=== PATIENT | female | born 1965 | race Caucasian/White ===

== ENCOUNTER 2016-08-04 22:36 | Outpatient (CLI) | payer MEDICAID | END 2016-08-04 22:37 | disposition home or self-care (01) | DX: G47.33 Obstructive sleep apnea (adult) (pediatric) (principal); G47.61 Periodic limb movement disorder; Z68.41 Body mass index [BMI] 40.0-44.9, adult ==

== ENCOUNTER 2016-08-30 10:10 | Outpatient (CLI) | payer MEDICAID | END 2016-08-30 10:11 | disposition home or self-care (01) | DX: G47.33 Obstructive sleep apnea (adult) (pediatric) (principal) ==

== ENCOUNTER 2016-11-15 14:54 | Outpatient (CLI) | payer MEDICAID | END 2016-11-15 14:55 | disposition home or self-care (01) | LOC: SC 14:54 | PROVIDERS: ATTEND Nurse Practitioner Family | DX: G47.33 Obstructive sleep apnea (adult) (pediatric) (principal) | CPT/HCPCS: 99212; 99214 ==

== ENCOUNTER 2016-12-13 09:51 | Outpatient (CLI) | payer MEDICAID ==
[2016-12-13 18:28] LABS: BASOPHILS % (AUTO) 0.4 %; EOSINOPHILS # (AUTO) 0.2 10^3/uL (0.0-0.7); EOSINOPHILS % (AUTO) 4.7 %; HCT - HEMATOCRIT 40.5 % (37.0-47.0); HGB - HEMOGLOBIN 13.8 g/dL (12.0-16.0); LYMPHOCYTES # (AUTO) 1.5 10^3/uL (1.5-3.5); LYMPHOCYTES % (AUTO) 38.7 %; MEAN CORPUSCULAR HEMOGLOBIN 28.8 pg (27.0-31.0); MEAN CORPUSCULAR HGB CONC 34.1 g/dL (32.0-36.0); MEAN CORPUSCULAR VOLUME 84.4 fL (81.0-99.0); MEAN PLATELET VOLUME 8.5 fL (7.9-10.8); MONOCYTES # (AUTO) 0.3 10^3/uL (0.0-1.0); MONOCYTES % (AUTO) 7.9 %; NEUTROPHILS # (AUTO) 1.9 10^3/uL (1.5-6.6); NEUTROPHILS % (AUTO) 48.3 %; NUCLEATED RED BLOOD CELLS AUTO 0.2 /100WBC; RED BLOOD COUNT 4.79 10^6/uL (4.20-5.40); RED CELL DISTRIBUTION WIDTH 14.7 % (12.0-15.0)
[2016-12-13 18:30] LABS: BILIRUBIN,URINE NEGATIVE (NEGATIVE); PH,URINE 5.5 PH (5.0-7.5)
[2016-12-13 19:00] LABS: UR CULTURE IF IND NOT INDICATED; WBC,URINE 0-3 /HPF (0-5)
[2016-12-13 19:01] LABS: ALBUMIN/GLOBULIN RATIO 1.4 (1.0-2.2); BILIRUBIN,TOTAL 0.6 mg/dL (0.2-1.0); CALCIUM 10.2 mg/dL (8.5-10.3); CREATININE 0.6 mg/dL (0.4-1.0); POTASSIUM 4.3 mmol/L (3.5-5.0); TOTAL PROTEIN 7.9 g/dL (6.7-8.2)
[2016-12-13 19:17] LABS: THYROID STIMULATING HORMONE 2.41 uIU/mL (0.34-5.60)
== END 2016-12-13 09:52 | disposition home or self-care (01) ==
LOC: LAB.F 09:51
PROVIDERS: ATTEND Nurse Practitioner Family
DX: E11.9 Type 2 diabetes mellitus without complications (principal); E03.9 Hypothyroidism, unspecified
CPT/HCPCS: 36415; 80053; 81001; 81003; 82043; 82570; 84439; 84443; 85025; 87086

== ENCOUNTER 2016-12-28 11:02 | Outpatient (CLI) | payer MEDICAID ==
--- NOTE | 2016-12-29 13:21 | Mammography Report ---
DIGITAL SCREENING MAMMOGRAM: 12/28/2016 CLINICAL INDICATION: A 51-year-old nulliparous patient, for screening. COMPARISON: 07/2011, 03/2008. TECHNIQUE: Routine CC and MLO projections were obtained of the breasts. FINDINGS: Scattered fibroglandular tissue is present within the breasts. There are no dominant elvis s, suspicious microcalcifications, or secondary signs of malignancy. In comparison to the previous st udies, there are no significant changes. ASSESSMENT: NO MAMMOGRAPHIC EVIDENCE OF MALIGNANCY. NO SIGNIFICANT INTERVAL CHANGES. RECOMMENDATION: Screening mammography is recommended annually. BIRADS category 1 - negative. STANDARD QUALIFYING STATEMENTS 1. This examination was reviewed with the aid of Computed-Aided Detection (CAD). 2. A negative or benign imaging report should not delay biopsy if clinically suspicious findings are present. Consider surgical consultation if warranted. More than 5% of cancers are not identified by i maging. 3. Dense breasts may obscure an underlying neoplasm. JOB #: [id number] EXT JOB #:[id number]
== END 2016-12-28 11:03 | disposition home or self-care (01) ==
LOC: DI.S 11:02
PROVIDERS: ATTEND Nurse Practitioner Family
DX: Z12.31 Encounter for screening mammogram for malignant neoplasm of breast (principal); Z01.419 Encounter for gynecological examination (general) (routine) without abnormal findings
CPT/HCPCS: 77067

== ENCOUNTER 2016-12-29 08:58 | Outpatient (CLI) | payer MEDICAID ==
[2016-12-29 11:59] LABS: CHOL/HDL RATIO 5.1 (<4.4); CHOLESTEROL 187 mg/dL; HDL CHOLESTEROL 37 mg/dL; LDL/HDL RATIO 2.4 (<4.4); TRIGLYCERIDES 305 mg/dL; VLDL CHOLESTEROL 61 mg/dL
[2016-12-29 12:11] LABS: HEMOGLOBIN A1C 1.28 g/dL
== END 2016-12-29 08:59 | disposition home or self-care (01) ==
LOC: LAB.F 08:58
PROVIDERS: ATTEND Nurse Practitioner Family
DX: E78.1 Pure hyperglyceridemia (principal)
CPT/HCPCS: 36415; 80061; 83036

== ENCOUNTER 2017-06-08 08:25 | Outpatient (CLI) | payer MEDICAID ==
[2017-06-08 11:11] LABS: CHOL/HDL RATIO 6.1 (<4.4); CHOLESTEROL 220 mg/dL; HDL CHOLESTEROL 36 mg/dL; LDL CHOLESTEROL,CALCULATED 121 mg/dL; LDL/HDL RATIO 3.4 (<4.4); VLDL CHOLESTEROL 63 mg/dL
[2017-06-08 11:14] LABS: HB2 TOTAL 14.2 g/dL; HEMOGLOBIN A1C 1.31 g/dL; HEMOGLOBIN A1C % 10.6 % (4.6-6.2)
[2017-06-08 11:17] LABS: THYROID STIMULATING HORMONE 6.9 uIU/mL (0.34-5.60)
[2017-06-08 11:58] LABS: FREE T4 (FREE THYROXINE) 0.83 ng/dL (0.58-1.64)
== END 2017-06-08 08:26 | disposition home or self-care (01) ==
LOC: LAB.F 08:25
PROVIDERS: ATTEND Nurse Practitioner Family
DX: E78.1 Pure hyperglyceridemia (principal); E11.9 Type 2 diabetes mellitus without complications; E03.9 Hypothyroidism, unspecified
CPT/HCPCS: 36415; 80061; 83036; 83721; 84439; 84443

== ENCOUNTER 2017-07-20 10:40 | Outpatient (CLI) | payer MEDICAID | END 2017-07-20 10:41 | disposition home or self-care (01) | LOC: LAB.F 10:40 | PROVIDERS: ATTEND Nurse Practitioner Family | DX: I10 Essential (primary) hypertension (principal) | CPT/HCPCS: 36415; 84132 ==

== ENCOUNTER 2017-10-08 08:42 | Outpatient (CLI) | payer MEDICAID ==
[2017-10-08 11:59] LABS: ALBUMIN 4.1 g/dL (3.2-5.5); ALBUMIN/GLOBULIN RATIO 1.3 (1.0-2.2); BILIRUBIN,TOTAL 0.9 mg/dL (0.2-1.0); CALCIUM 9.4 mg/dL (8.5-10.3); CREATININE 0.7 mg/dL (0.4-1.0); TOTAL PROTEIN 7.2 g/dL (6.7-8.2)
== END 2017-10-08 08:43 | disposition home or self-care (01) ==
LOC: LAB.F 08:42
PROVIDERS: ATTEND Nurse Practitioner Family
DX: E78.5 Hyperlipidemia, unspecified (principal); E11.65 Type 2 diabetes mellitus with hyperglycemia
CPT/HCPCS: 36415; 80053; 83721

== ENCOUNTER 2017-11-08 09:57 | Outpatient (CLI) | payer MEDICAID ==
[2017-11-08 18:18] LABS: HB2 TOTAL 13.7 g/dL; HEMOGLOBIN A1C 0.9 g/dL; HEMOGLOBIN A1C % 8.2 % (4.6-6.2)
== END 2017-11-08 09:58 | disposition home or self-care (01) ==
LOC: LAB.F 09:57
PROVIDERS: ATTEND Family Medicine
DX: E11.649 Type 2 diabetes mellitus with hypoglycemia without coma (principal)
CPT/HCPCS: 36415; 83036

== ENCOUNTER 2018-05-31 08:26 | Outpatient (CLI) | payer MEDICAID ==
[2018-05-31 12:03] LABS: BASOPHILS % (AUTO) 0.4 %; EOSINOPHILS # (AUTO) 0.2 10^3/uL (0.0-0.7); EOSINOPHILS % (AUTO) 2.7 %; HGB - HEMOGLOBIN 12.6 g/dL (12.0-16.0); LYMPHOCYTES # (AUTO) 1.4 10^3/uL (1.5-3.5); LYMPHOCYTES % (AUTO) 19.1 %; MEAN CORPUSCULAR HEMOGLOBIN 28.5 pg (27.0-31.0); MEAN CORPUSCULAR HGB CONC 34.4 g/dL (32.0-36.0); MEAN CORPUSCULAR VOLUME 82.8 fL (81.0-99.0); MEAN PLATELET VOLUME 8.1 fL (7.9-10.8); MONOCYTES # (AUTO) 0.4 10^3/uL (0.0-1.0); MONOCYTES % (AUTO) 6.1 %; NEUTROPHILS # (AUTO) 5.3 10^3/uL (1.5-6.6); NEUTROPHILS % (AUTO) 71.7 %; PLT - PLATELET COUNT 244 10^3/uL (130-450); RED BLOOD COUNT 4.44 10^6/uL (4.20-5.40); WHITE BLOOD COUNT 7.3 x10^3/uL (4.8-10.8)
[2018-05-31 12:23] LABS: ALBUMIN/GLOBULIN RATIO 1.2 (1.0-2.2); ALKALINE PHOSPHATASE 86 IU/L (42-121); ALT ALANINE AMINOTRANSFERASE 48 IU/L (10-60); AST ASPARTATE AMINOTRANSFERASE 29 IU/L (10-42); BILIRUBIN,TOTAL 0.6 mg/dL (0.2-1.0); BUN - BLOOD UREA NITROGEN 20 mg/dL (6-20); CALCIUM 9.5 mg/dL (8.5-10.3); CARBON DIOXIDE - CO2 25 mmol/L (21-32); CHLORIDE 102 mmol/L (101-111); CHOL/HDL RATIO 3.6 (<4.4); CHOLESTEROL 113 mg/dL; CREATININE 0.7 mg/dL (0.4-1.0); GFR - MDRD 87 (>89); GLUCOSE 196 mg/dL (70-100); HDL CHOLESTEROL 31 mg/dL; LDL CHOLESTEROL,CALCULATED 35 mg/dL; LDL/HDL RATIO 1.1 (<4.4); SODIUM 135 mmol/L (135-145); TOTAL PROTEIN 7.4 g/dL (6.7-8.2); VLDL CHOLESTEROL 47 mg/dL
== END 2018-05-31 08:27 | disposition home or self-care (01) ==
LOC: LAB.F 08:26
PROVIDERS: ATTEND Nurse Practitioner Family
DX: I10 Essential (primary) hypertension (principal); E78.5 Hyperlipidemia, unspecified; E11.8 Type 2 diabetes mellitus with unspecified complications
CPT/HCPCS: 36415; 80053; 80061; 82043; 83721; 84443; 85025

== ENCOUNTER 2019-01-28 14:12 | Outpatient (CLI) | payer MEDICAID ==
[2019-01-28 18:40] LABS: HEMOGLOBIN A1C 0.73 g/dL; HEMOGLOBIN A1C % 7.3 % (4.6-6.2)
== END 2019-01-28 14:13 | disposition home or self-care (01) ==
LOC: LAB.S 14:12
PROVIDERS: ATTEND Physician Assistant Medical
DX: E11.65 Type 2 diabetes mellitus with hyperglycemia (principal)
CPT/HCPCS: 36415; 83036

== ENCOUNTER 2019-06-17 16:05 | Outpatient (CLI) | payer MEDICAID ==
[2019-06-17 17:32] VITALS: BP 136/70
--- NOTE | 2019-06-17 17:32 | SLEEP CARE CONSULTATION ---
Information from patient questionnaire entered by Leilani Pichardo. I have reviewed and concur with the information entered by Leilani Pichardo. This document represents the service I personally performed and the decisions made by me, Daysi Delcid, RN, MSN, HUMAN RESOURCES GENERALIST. History of Present Illness Previous diagnosis: Severe, Obstructive Sleep Apnea-Hypopnea Syndrome AHI: 30.5 Reason for follow up: annual (Last seen 2017) Equipment type: CPAP Equipment obtained from: [facility] (having difficulty getting supplies despite repeated attempts) Mask style: Nasal Mask brand: Resmed Backup mask available: Yes (old mask ) Last cushion change: a few months ago CPAP Compliance Data - Data Reviewed with Patient Average duration of nightly device use: 10.25 Compliance rate %: 100 (last 30) Current pressure setting (cmH2O): 10-15 Humidity settin Heated hose settin Average residual AHI: 0.5 Average large leak: 1 min 32 sec Subjective Patient concerns: reports: other (dry skin where mask sits next to nose). denies: aerophagia, mask discomfort, air blowing in eyes, mask leak noise, condensation in mask/hose, nasal congestion, dry mouth, nose, throat (does not use humidifier ), epistaxis Observed to snore while using device: No Current pressure setting perceived as: comfortable On therapy, patient: reports: sleeping better, awakening more refreshed, being more awake and alert during the day, more rested overall. denies: drowsiness while driving Initial [place] Sleepiness Scale score: 13 Current [place] Sleepiness Scale score: 7 Allergies and Home Medications Known drug allergies: Yes (see above ) Home medication list reviewed: Yes Allergy and home medication list: losartin 50mg ? daily metoprolol 100mg daily metformin 500mg bid doxazosin 4mg daily levothyroxine 120meq daily Lantus solostar 50 units daily sq Flexeril 10mg po tid prn vitamin D 3 5000 units daily multivitamin daily Physical Exam Blood Pressure: 136/70 Cuff size: long Heart Rate: 84 O2 Saturation: 97 Height: 5 ft 1 in Weight: 235 lb 3.2 oz Body Mass Index: 44.4 BMI Classification: Obesity Class 3 Impression and Plan 1. Obstructive Sleep Apnea-Hypopnea Syndrome, severe , with good treatment compliance and good apnea control. On CPAP therapy, the patient has better sleep quality and is more rested overall. For dry skin, she can try Vaseline after mask use. Also, pad a Cheek cloth skin barrier samples shown that can be ordered to reduce mask skin irritation. A pamphlet given about the product was given. For patient supply concerns. Patient was notified that another DME can be used. I will have my membership coordinator inform of DME options. A [facility] prescription will then be made. Patient advised to contact this office if further supply problems. There were some data breaks in the past 6 months of use that patient does not understand as she is unable to sleep without CPAP and has a portable when power outages. Thus she is advised to check out the Serstechapper micheal to track her use and if breaks noted when using, then we can have device for malfunction. Patient has gained weight. Currently patients BMI is 39.9 obesity class. Obesity increases the risk of apnea, CPAP pressure requirements and overall health risks especially cardiovascular and diabetes. Thus patient is advised to lose weight. A diet consultation can be helpful in achieving optimal weight loss goals. Patient encouraged to discuss their weight loss goals with their PCP and consider a referral to a vat house supervisor. The patient's CPAP pressure range should accommodate some weight loss. The range will adjust higher when she uses her muscle relaxant. Symptoms to report for additional pressure adjustment discussed. Patient's apnea severity and rationale for treatment to reduce apnea, improve sleep quality and reduce cardiovascular and cerebrovascular events was reviewed. I also reviewed the benefit of consistent device use of CPAP for hypertension, diabetes * Continue CPAP pressure at 10-15 cmH2O * Transfer to new DME * Try Sleep swimming pool installer and servicer micheal * Consider cloth barrier * Notify me if snoring with mask or feeling that the pressure is too much or too little * Attempt to lose weight * follow up with PCP for diet consultation * Call this office if any problems using CPAP * Return for follow up in 1 year, or sooner if concerns arise . Time Spent with Patient (minutes): 30 I spent 100% of this visit face to face with the patient with greater than 50% of this was spent time counseling the patient and coordination of care.
== END 2019-06-17 16:06 | disposition home or self-care (01) ==
LOC: SC 16:05
PROVIDERS: ATTEND Nurse Practitioner Family
DX: G47.33 Obstructive sleep apnea (adult) (pediatric) (principal); E66.9 Obesity, unspecified; Z68.39 Body mass index [BMI] 39.0-39.9, adult
CPT/HCPCS: 99212; 99214

== ENCOUNTER 2019-07-18 08:56 | Outpatient (CLI) | payer MEDICAID ==
[2019-07-18 17:17] LABS: BASOPHILS % (AUTO) 0.3 %; EOSINOPHILS # (AUTO) 0.3 10^3/uL (0.0-0.7); EOSINOPHILS % (AUTO) 4.3 %; HGB - HEMOGLOBIN 12.6 g/dL (12.0-16.0); LYMPHOCYTES # (AUTO) 2.2 10^3/uL (1.5-3.5); LYMPHOCYTES % (AUTO) 36.7 %; MEAN CORPUSCULAR HEMOGLOBIN 27.4 pg (27.0-31.0); MEAN CORPUSCULAR VOLUME 85.7 fL (81.0-99.0); MEAN PLATELET VOLUME 9.9 fL (7.9-10.8); MONOCYTES # (AUTO) 0.4 10^3/uL (0.0-1.0); MONOCYTES % (AUTO) 6.5 %; NEUTROPHILS % (AUTO) 51.5 %; PLT - PLATELET COUNT 259 10^3/uL (130-450); RED CELL DISTRIBUTION WIDTH 14.6 % (12.0-15.0); WHITE BLOOD COUNT 5.9 x10^3/uL (4.8-10.8)
[2019-07-18 17:34] LABS: HB2 TOTAL 13.3 g/dL; HEMOGLOBIN A1C 0.83 g/dL; HEMOGLOBIN A1C % 7.9 % (4.6-6.2)
[2019-07-18 17:41] LABS: ALBUMIN 4.2 g/dL (3.2-5.5); ALBUMIN/GLOBULIN RATIO 1.4 (1.0-2.2); ALKALINE PHOSPHATASE 58 IU/L (42-121); ALT ALANINE AMINOTRANSFERASE 45 IU/L (10-60); AST ASPARTATE AMINOTRANSFERASE 27 IU/L (10-42); BILIRUBIN,TOTAL 0.7 mg/dL (0.2-1.0); BUN - BLOOD UREA NITROGEN 20 mg/dL (6-20); CALCIUM 9.1 mg/dL (8.5-10.3); CARBON DIOXIDE - CO2 27 mmol/L (21-32); CHLORIDE 99 mmol/L (101-111); CHOL/HDL RATIO 3.2 (<4.4); CHOLESTEROL 113 mg/dL; CREATININE 0.7 mg/dL (0.4-1.0); GFR - MDRD 87 (>89); GLUCOSE 185 mg/dL (70-100); HDL CHOLESTEROL 35 mg/dL; LDL CHOLESTEROL,CALCULATED 43 mg/dL; LDL/HDL RATIO 1.2 (<4.4); SODIUM 134 mmol/L (135-145); TOTAL PROTEIN 7.3 g/dL (6.7-8.2); VLDL CHOLESTEROL 35 mg/dL
[2019-07-18 17:44] LABS: CREATININE,URINE 108.6 mg/dL; MICROALBUM/CREATININE RATIO,UR 6.4 ug/mg (<30.0); MICROALBUMIN,URINE 0.7 mg/dL (0-300.0)
== END 2019-07-18 08:57 | disposition home or self-care (01) ==
LOC: LAB.S 08:56
PROVIDERS: ATTEND Physician Assistant Medical
DX: I10 Essential (primary) hypertension (principal); E78.5 Hyperlipidemia, unspecified; E11.65 Type 2 diabetes mellitus with hyperglycemia; E03.9 Hypothyroidism, unspecified
CPT/HCPCS: 36415; 80053; 80061; 82043; 82570; 83036; 83721; 84443; 85025

== ENCOUNTER 2020-03-15 08:31 | Outpatient (CLI) | payer MEDICAID ==
[2020-03-15 16:01] LABS: CALCIUM 9.6 mg/dL (8.5-10.3); CREATININE 0.8 mg/dL (0.4-1.0)
[2020-03-15 16:44] LABS: CREATININE,URINE 166.3 mg/dL; MICROALBUM/CREATININE RATIO,UR 7.2 ug/mg (<30.0); MICROALBUMIN,URINE 1.2 mg/dL (0-300.0)
[2020-03-15 21:03] LABS: HEMOGLOBIN A1c% 7.9 % (4.27-6.07)
== END 2020-03-15 08:32 | disposition home or self-care (01) ==
LOC: LAB.S 08:31
PROVIDERS: ATTEND Registered Nurse
DX: E11.65 Type 2 diabetes mellitus with hyperglycemia (principal)
CPT/HCPCS: 36415; 80048; 82043; 82570; 83036

== ENCOUNTER 2020-06-21 15:51 | Outpatient (CLI) | payer MEDICAID | END 2020-06-21 15:52 | disposition critical access hospital (66) | LOC: EMS 15:51 | PROVIDERS: ATTEND Emergency Medicine | DX: R41.82 Altered mental status, unspecified (principal) | CPT/HCPCS: A0425; A0427; A0999 ==

== ENCOUNTER 2020-06-21 16:23 | Observation (INO) | payer MEDICAID ==
--- NOTE | 2020-06-21 16:54 | ED Physician Documentation ---
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 states that this started about 2 days ago, noticed her sleeping more than usual. 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 No trauma. No fevers. Nothing makes it better or worse. No history of stroke. She is diabetic. Review of Systems Ten Systems: 10 systems reviewed and negative Constitutional: denies: Fever, Chills Nose: denies: Rhinorrhea / runny nose, Congestion Cardiac: denies: Chest pain / pressure, Palpitations Respiratory: denies: Cough GI: denies: Vomiting PD PAST MEDICAL HISTORY - Past Medical History Cardiovascular: Hypertension, High cholesterol Endocrine/Autoimmune: Type 2 diabetes, HyPOthyroidism - Present Medications Home Medications: Ambulatory Orders Medication Instructions Recorded Confirmed Doxazosin [Cardura] 6 mg PO DAILY 06/12/14 06/22/20 Metoprolol Succinate 100 mg PO DAILY 06/12/14 06/22/20 Insulin Glargine [Lantus Solostar] 50 unit SUBQ DAILY 10/25/17 06/22/20 Albuterol Sulfate [Proair Hfa 2 puffs INH PRN PRN 06/22/20 06/22/20 Inhaler] Atorvastatin Calcium [Lipitor] 80 mg PO QPM 06/22/20 06/22/20 Cyclobenzaprine HCl 10 mg PO PRN PRN 06/22/20 06/22/20 Levothyroxine [Synthroid] 125 mcg PO DAILY 06/22/20 06/22/20 Losartan Potassium 25 mg PO DAILY 06/22/20 06/22/20 Metformin HCl [Glucophage] 1,000 mg PO BID 06/22/20 06/22/20 - Allergies Allergies/Adverse Reactions: Allergies Allergy/AdvReac Type Severity Reaction Status Date / Time clindamycin Allergy Respiratory Verified 06/21/20 16:45 Penicillins Allergy Unknown Verified 06/21/20 16:45 Sulfa (Sulfonamide Allergy Unknown Verified 06/21/20 16:45 Antibiotics) - Social History Smoking Status: Never smoker PD ED PE NORMAL - Vitals Vital signs reviewed: Yes - General General: No acute distress, Well developed/nourished, Other (Alert, oriented to person, place, time, slow to respond at times. Has difficulty with longer sentences. Able to answer short sentences easily) - HEENT HEENT: Atraumatic, PERRL, Ears normal, Moist mucous membranes, Pharynx benign - Neck Neck: Supple, no meningeal sign - Cardiac Cardiac: RRR, Strong equal pulses - Respiratory Respiratory: No respiratory distress, Clear bilaterally - Abdomen Abdomen: Soft, Non tender, Non distended - Back Back: No CVA TTP - Derm Derm: Warm and dry - Extremities Extremities: No edema - Neuro Neuro: smoking pipe repairer 2-12 intact, No motor deficit, No sensory deficit Eye Opening: Spontaneous Motor: Obeys Commands Verbal: Confused GCS Score: 14 Results - Vitals Vitals: Vital Signs - 24 hr 06/21/20 06/21/20 06/21/20 16:20 16:30 16:56 Temperature 37.0 C Heart Rate 84 87 81 Respiratory 17 17 Rate Blood Pressure 162/88 H 177/90 H 165/85 H O2 Saturation 98 97 06/21/20 06/21/20 06/21/20 17:00 18:19 18:30 Temperature Heart Rate 82 91 82 Respiratory 18 16 17 Rate Blood Pressure 156/85 H 188/88 H 171/111 H O2 Saturation 98 95 97 06/21/20 06/21/20 06/21/20 18:51 19:30 20:00 Temperature 36.7 C Heart Rate 89 90 82 Respiratory 18 20 18 Rate Blood Pressure 161/117 H 164/91 H 170/99 H O2 Saturation 96 97 96 Oxygen O2 Source Room air - Labs Labs: Laboratory Tests 06/21/20 06/21/20 06/21/20 16:59 16:59 16:59 WBC 6.0 RBC 4.67 Hgb 13.0 Hct 39.5 MCV 84.6 MCH 27.8 MCHC 32.9 RDW 14.1 Plt Count 246 MPV 9.1 Neut # (Auto) 4.4 Lymph # (Auto) 1.0 L [place] # (Auto) 0.4 Eos # (Auto) 0.1 Baso # (Auto) 0.0 Absolute Nucleated RBC 0.00 Nucleated RBC % 0.0 VBG pH VBG pCO2 VBG pO2 VBG HCO3 VBG Total CO2 VBG O2 Saturation VBG Base Excess Sodium 131 L Potassium 3.9 Chloride 98 L Carbon Dioxide 23 Anion Gap 10.0 BUN 14 Creatinine 0.7 Estimated GFR (MDRD) 87 L Glucose 246 H Estimat Average Glucose Hemoglobin A1c % Calcium 9.5 Total Bilirubin 0.9 AST 22 ALT 36 Alkaline Phosphatase 54 Total Protein 7.7 Albumin 4.3 Globulin 3.4 Albumin/Globulin Ratio 1.3 Lipase 16 L TSH 1.39 Urine Color Urine Clarity Urine pH Ur Specific [place] Urine Protein Urine Glucose (UA) Urine Ketones Urine Occult Blood Urine Nitrite Urine Bilirubin Urine Urobilinogen Ur Leukocyte Esterase Ur Microscopic Review Urine Culture Comments Nasal Adenovirus (PCR) Nasal B. parapertussis DNA (PCR) Nasal Coronavir 229E PCR Nasal Coronavir HKU1 PCR Nasal Coronavir NL63 PCR Nasal Coronavir OC43 PCR Nasal Enterovir/Rhinovir PCR Nasal Influenza B PCR Nasal Influenza A PCR Nasal Parainfluen 1 PCR Nasal Parainfluen 2 PCR Nasal Parainfluen 3 PCR Nasal Parainfluen 4 PCR Nasal RSV (PCR) Nasal B.pertussis DNA PCR Nasal C.pneumoniae (PCR) [place] Metapneumo PCR Nasal M.pneumoniae (PCR) Nasal SARS-CoV-2 (PCR) Salicylates < 6.0 Urine Opiates Screen Ur Oxycodone Screen Urine Methadone Screen Ur Propoxyphene Screen Acetaminophen < 10 L Ur Barbiturates Screen Ur Tricyclics Screen Ur Phencyclidine Scrn Ur Amphetamine Screen U Methamphetamines Scrn U Benzodiazepines Scrn Urine Cocaine Screen U Cannabinoids Screen Ethyl Alcohol < 5.0 Serum Ketones NEGATIVE 06/21/20 06/21/20 06/21/20 16:59 16:59 17:06 WBC RBC Hgb Hct MCV MCH MCHC RDW Plt Count MPV Neut # (Auto) Lymph # (Auto) [place] # (Auto) Eos # (Auto) Baso # (Auto) Absolute Nucleated RBC Nucleated RBC % VBG pH 7.411 H VBG pCO2 38.5 L VBG pO2 48.2 H VBG HCO3 23.9 VBG Total CO2 25.1 VBG O2 Saturation 85.2 H VBG Base Excess -0.5 Sodium Potassium Chloride Carbon Dioxide Anion Gap BUN Creatinine Estimated GFR (MDRD) Glucose Estimat Average Glucose 200 H Hemoglobin A1c % 8.6 H Calcium Total Bilirubin AST ALT Alkaline Phosphatase Total Protein Albumin Globulin Albumin/Globulin Ratio Lipase TSH Urine Color YELLOW Urine Clarity CLEAR Urine pH 6.0 Ur Specific [place] 1.020 Urine Protein NEGATIVE Urine Glucose (UA) 250 H Urine Ketones NEGATIVE Urine Occult Blood NEGATIVE Urine Nitrite NEGATIVE Urine Bilirubin NEGATIVE Urine Urobilinogen 0.2 (NORMAL) Ur Leukocyte Esterase NEGATIVE Ur Microscopic Review NOT INDICATED Urine Culture Comments NOT INDICATED Nasal Adenovirus (PCR) Nasal B. parapertussis DNA (PCR) Nasal Coronavir 229E PCR Nasal Coronavir HKU1 PCR Nasal Coronavir NL63 PCR Nasal Coronavir OC43 PCR Nasal Enterovir/Rhinovir PCR Nasal Influenza B PCR Nasal Influenza A PCR Nasal Parainfluen 1 PCR Nasal Parainfluen 2 PCR Nasal Parainfluen 3 PCR Nasal Parainfluen 4 PCR Nasal RSV (PCR) Nasal B.pertussis DNA PCR Nasal C.pneumoniae (PCR) [place] Metapneumo PCR Nasal M.pneumoniae (PCR) Nasal SARS-CoV-2 (PCR) Salicylates Urine Opiates Screen NEGATIVE Ur Oxycodone Screen NEGATIVE Urine Methadone Screen NEGATIVE Ur Propoxyphene Screen NEGATIVE Acetaminophen Ur Barbiturates Screen NEGATIVE Ur Tricyclics Screen NEGATIVE Ur Phencyclidine Scrn NEGATIVE Ur Amphetamine Screen NEGATIVE U Methamphetamines Scrn NEGATIVE U Benzodiazepines Scrn NEGATIVE Urine Cocaine Screen NEGATIVE U Cannabinoids Screen NEGATIVE Ethyl Alcohol Serum Ketones 06/21/20 19:28 WBC RBC Hgb Hct MCV MCH MCHC RDW Plt Count MPV Neut # (Auto) Lymph # (Auto) [place] # (Auto) Eos # (Auto) Baso # (Auto) Absolute Nucleated RBC Nucleated RBC % VBG pH VBG pCO2 VBG pO2 VBG HCO3 VBG Total CO2 VBG O2 Saturation VBG Base Excess Sodium Potassium Chloride Carbon Dioxide Anion Gap BUN Creatinine Estimated GFR (MDRD) Glucose Estimat Average Glucose Hemoglobin A1c % Calcium Total Bilirubin AST ALT Alkaline Phosphatase Total Protein Albumin Globulin Albumin/Globulin Ratio Lipase TSH Urine Color Urine Clarity Urine pH Ur Specific [place] Urine Protein Urine Glucose (UA) Urine Ketones Urine Occult Blood Urine Nitrite Urine Bilirubin Urine Urobilinogen Ur Leukocyte Esterase Ur Microscopic Review Urine Culture Comments Nasal Adenovirus (PCR) NOT DETECTED Nasal B. parapertussis DNA (PCR) NOT DETECTED Nasal Coronavir 229E PCR NOT DETECTED Nasal Coronavir HKU1 PCR NOT DETECTED Nasal Coronavir NL63 PCR NOT DETECTED Nasal Coronavir OC43 PCR NOT DETECTED Nasal Enterovir/Rhinovir PCR NOT DETECTED Nasal Influenza B PCR NOT DETECTED Nasal Influenza A PCR NOT DETECTED Nasal Parainfluen 1 PCR NOT DETECTED Nasal Parainfluen 2 PCR NOT DETECTED Nasal Parainfluen 3 PCR NOT DETECTED Nasal Parainfluen 4 PCR NOT DETECTED Nasal RSV (PCR) NOT DETECTED Nasal B.pertussis DNA PCR NOT DETECTED Nasal C.pneumoniae (PCR) NOT DETECTED [place] Metapneumo PCR NOT DETECTED Nasal M.pneumoniae (PCR) NOT DETECTED Nasal SARS-CoV-2 (PCR) NOT DETECTED Salicylates Urine Opiates Screen Ur Oxycodone Screen Urine Methadone Screen Ur Propoxyphene Screen Acetaminophen Ur Barbiturates Screen Ur Tricyclics Screen Ur Phencyclidine Scrn Ur Amphetamine Screen U Methamphetamines Scrn U Benzodiazepines Scrn Urine Cocaine Screen U Cannabinoids Screen Ethyl Alcohol Serum Ketones - Rads (name of study) head CT Radiology: Prelim report reviewed, EMP read contemporaneously, See rad report PD MEDICAL DECISION MAKING - ED course Complexity details: reviewed results, re-evaluated patient, considered differential, d/w patient ED course: Patient with altered mental status for the past 2 days. Appears to be having mostly expressive aphasia. Concern for completed stroke. She continues to have altered mental status. No acute findings on head CT or CT angiogram of the head and neck. Discussed with Dr. Metzger, hospitalist who accepts. This document was made in part using voice recognition software. While efforts are made to proofread this document, sound alike and grammatical errors may occur. Departure - Departure Disposition: ED Place in Observation Clinical Impression: Expressive aphasia, Stroke-like symptoms Altered mental status Qualifiers: Altered mental status type: unspecified Qualified Code(s): R41.82 - Altered mental status, unspecified Condition: Stable Discharge Date/Time: 06/21/20 21:03
[2020-06-21 17:14] LABS: VBG BASE EXCESS -0.5 mmol/L (-2 - +2); VBG PCO2 38.5 mmHg (41-51); VBG PH 7.411 (7.31-7.41); VBG PO2 48.2 mmHg (25-47); VBG TOTAL CO2 25.1 mmol/L (24-29)
[2020-06-21 17:17] LABS: MUDS CUTOFF CONCENTRATIONS CUTOFF CONC BELOW:
[2020-06-21 17:18] LABS: BASOPHILS % (AUTO) 0.3 %; EOSINOPHILS # (AUTO) 0.1 10^3/uL (0.0-0.7); LYMPHOCYTES % (AUTO) 17.1 %; MEAN CORPUSCULAR HEMOGLOBIN 27.8 pg (27.0-31.0); MEAN CORPUSCULAR HGB CONC 32.9 g/dL (32.0-36.0); MEAN CORPUSCULAR VOLUME 84.6 fL (81.0-99.0); MEAN PLATELET VOLUME 9.1 fL (7.9-10.8); MONOCYTES # (AUTO) 0.4 10^3/uL (0.0-1.0); MONOCYTES % (AUTO) 7.4 %; NEUTROPHILS # (AUTO) 4.4 10^3/uL (1.5-6.6); NEUTROPHILS % (AUTO) 73.4 %; PLT - PLATELET COUNT 246 10^3/uL (130-450); RED BLOOD COUNT 4.67 10^6/uL (4.20-5.40); RED CELL DISTRIBUTION WIDTH 14.1 % (12.0-15.0)
[2020-06-21 17:23] LABS: KETONES, SERUM (ACETEST) NEGATIVE (NEGATIVE)
[2020-06-21 17:32] LABS: ACETAMINOPHEN < 10 ug/mL (10-30); ALBUMIN 4.3 g/dL (3.2-5.5); ALBUMIN/GLOBULIN RATIO 1.3 (1.0-2.2); ALKALINE PHOSPHATASE 54 IU/L (42-121); ALT ALANINE AMINOTRANSFERASE 36 IU/L (10-60); AST ASPARTATE AMINOTRANSFERASE 22 IU/L (10-42); BILIRUBIN,TOTAL 0.9 mg/dL (0.2-1.0); BUN - BLOOD UREA NITROGEN 14 mg/dL (6-20); CALCIUM 9.5 mg/dL (8.5-10.3); CARBON DIOXIDE - CO2 23 mmol/L (21-32); CHLORIDE 98 mmol/L (101-111); CREATININE 0.7 mg/dL (0.4-1.0); GLUCOSE 246 mg/dL (70-100); LIPASE 16 U/L (22-51); SALICYLATE < 6.0 mg/dL; TOTAL PROTEIN 7.7 g/dL (6.7-8.2)
[2020-06-21 17:32] LABS: BILIRUBIN,URINE NEGATIVE (NEGATIVE); GLUCOSE, URINE (UA) 250 mg/dL (NEGATIVE); KETONES,URINE (UA) NEGATIVE (NEGATIVE); LEUKOCYTE ESTERASE, URINE NEGATIVE (NEGATIVE); NITRITE,URINE NEGATIVE (NEGATIVE); OCCULT BLOOD,URINE NEGATIVE (NEGATIVE); PROTEIN,URINE NEGATIVE (NEGATIVE); UROBILINOGEN,URINE 0.2 (NORMAL) E.U./dL (NORMAL)
[2020-06-21 17:34] LABS: CLARITY,URINE CLEAR (CLEAR)
--- NOTE | 2020-06-21 17:35 | CT Report ---
PROCEDURE: HEAD WO INDICATIONS: altered mental status x 2 days TECHNIQUE: Noncontrast 4.5 mm thick angled axial sections acquired from the foramen magnum to the vertex. For r adiation dose reduction, the following was used: automated exposure control, adjustment of mA and/or kV according to patient size. COMPARISON: None. FINDINGS: Image quality: Limited by motion artifact. CSF spaces: Basal cisterns are patent. No extra-axial fluid collections. Ventricles are normal in size and shape. Brain: No midline shift. No intracranial masses or hemorrhage. Calle-white matter interface is norm al. Skull and face: Calvarium and visualized facial bones are intact, without suspicious lesions. Sinuses: Visualized sinuses and mastoids are clear. IMPRESSION: No acute intracranial abnormality can be seen. Reviewed by: Juan Foster MD on 06/21/2020 4:33 PM [facility] Approved by: Juan Foster MD on 06/21/2020 4:33 PM [facility] Station ID: [id number]
[2020-06-21 17:40] LABS: AMPHETAMINE SCREEN,URINE NEGATIVE (NEGATIVE); BENZODIAZEPINES SCREEN, URINE NEGATIVE (NEGATIVE); COCAINE SCREEN URINE NEGATIVE (NEGATIVE); METHADONE SCREEN, URINE NEGATIVE (NEGATIVE); METHAMPHETAMINES SCREEN, URINE NEGATIVE (NEGATIVE); OPIATE SCREEN, URINE NEGATIVE (NEGATIVE); OXYCODONE SCREEN, URINE NEGATIVE (NEGATIVE); PROPOXYPHENE SCREEN, URINE NEGATIVE (NEGATIVE); TRICYCLIC ANTIDEPRESSANT,URINE NEGATIVE (NEGATIVE)
[2020-06-21] MEDS ORDERED: IOVERSOL 320 100 ML VIAL IVP ONE ×2 (17:51→18:23)
--- NOTE | 2020-06-21 18:26 | CT Report ---
PROCEDURE: ANGIO HEAD W/WO INDICATIONS: expressive aphasia x 2 days CONTRAST: IV CONTRAST: Optiray 320 ml: 80 PO CONTRAST: *NO PO CONTRAST TECHNIQUE: Noncontrast head CT images were performed earlier and not repeated. After the administration of intra venous contrast, 1 mm thick sections acquired through the [place] of [place]. Postcontrast 4.5 mm thic k sections then re-acquired from the foramen magnum to the vertex. 3-dimensional imdunzk-geeqylyvi-e rojection (MIP) and/or volume rendering reformats were acquired of the central intracranial vasculatu re. For radiation dose reduction, the following was used: automated exposure control, adjustment of mA and/or kV according to patient size. COMPARISON: Correlation is made with the prior head CT and the accompanying neck CT angiogram, 2020. FINDINGS: Image quality: Excellent. Anterior circulation: Intracranial internal carotid arteries are normal in size and flow. The flow within the paired anterior cerebral arteries is normal and symmetric. The flow within the middle cer ebral arteries is normal and symmetric. The anterior communicating artery is seen. No aneurysms are seen. Posterior circulation: Visualized portions of the vertebral arteries demonstrate normal caliber, and join to form a normal appearing basilar artery. Flow within the posterior cerebral arteries is norm al and symmetric. No aneurysms are seen. CSF spaces: Ventricles are normal in size and shape. Basal cisterns are patent. No extra-axial flu id collections. Brain: No midline shift. No intracranial bleeds or masses. Calle-white matter interface appears int act. Skull and face: Calvarium and facial bones appear intact, without suspicious lesions. Sinuses: Visualized sinuses and mastoids are clear. IMPRESSION: No significant intracranial arterial abnormalities are seen. No masses or abnormal enhancement can be seen. Reviewed by: Juan Foster MD on 06/21/2020 5:25 PM [facility] Approved by: Juan Foster MD on 06/21/2020 5:25 PM [facility] Station ID: [id number]
--- NOTE | 2020-06-21 18:28 | CT Report ---
PROCEDURE: ANGIO NECK W INDICATIONS: expressive aphasia x 2 days CONTRAST: IV CONTRAST: Optiray 320 ml: 80 PO CONTRAST: *NO PO CONTRAST TECHNIQUE: After the administration of intravenous contrast, 1.5 mm axial sections acquired from the aortic arch to the [place] of [place]. Coronal 3-D maximum intensity projection (MIP) and/or volume rendering ref ormats were then performed. For radiation dose reduction, the following was used: automated exposur e control, adjustment of mA and/or kV according to patient size. COMPARISON: Correlation is made with the head CT and head CT angiogram, 06/21/2020. FINDINGS: Image quality: Excellent. Carotid system: The great vessels demonstrate a conventional anatomy as they arise from the aortic a rch. The origins of the common carotid arteries appear patent. The common carotid arteries demonstr ate normal calibers and courses. The bifurcation regions demonstrate mild atherosclerotic calcificat ion and irregularity The more distal internal carotid arteries demonstrate normal caliber and course. Posterior circulation: The origins of the vertebral arteries appear patent. The more superior porti ons of the vertebral arteries demonstrate normal course and caliber. They join to form a normal appe aring basilar artery. Soft tissues: Visualized neck soft tissues demonstrate no suspicious abnormalities. The thyroid gla nd is normal in size. Bones: No suspicious bony lesions. Visualized cervical spine appears normally aligned. Moderate l ower cervical spine degenerative changes can be seen, including at least moderate disc space narrowin g at C4-C5 and C5-C6. Bridging anterior osteophytes are seen at least C4-C6. IMPRESSION: No hemodynamically significant stenosis can be seen within the arteries of the neck. The estimate of stenosis included in the report of the imaging study was calculated using the NASCET method Reviewed by: Juan Foster MD on 06/21/2020 5:27 PM [facility] Approved by: Juan Foster MD on 06/21/2020 5:27 PM [facility] Station ID: [id number]
[2020-06-21] MEDS ORDERED: SODIUM CHLORIDE 0.9% 1,000 ML IV STA (18:50)
[2020-06-21] MEDS ORDERED: ASPIRIN CHEW 81 MG TABLET PO STA (19:06)
[2020-06-21] MEDS ORDERED: SODIUM CHLORIDE FLUSH 0.9% 10 ML SYRINGE IVP PRN (20:16)
[2020-06-21 20:22] LABS: C. PNEUMONIAE- RESP PCR PANEL NOT DETECTED
[2020-06-21 20:36] LABS: HEMOGLOBIN A1c% 8.6 % (4.27-6.07)
[2020-06-21] MEDS ORDERED: D5NS W/20 MEQ KCL 1,000 ML IV SCH (21:00)
[2020-06-21] MEDS: ATORVASTATIN 40 MG TABLET PO SCH (21:50)
[2020-06-21] MEDS: INSULIN ASPART 300 UNIT/3 ML PEN SUBQ SCH (21:52)
[2020-06-21] MEDS: ACETAMINOPHEN 325 MG TABLET PO PRN (23:00)
[2020-06-21] MEDS: SODIUM CHLORIDE FLUSH 0.9% 10 ML SYRINGE IVP SCH (23:33)
--- NOTE | 2020-06-22 00:41 | HISTORY & PHYSICAL EXAMINATION ---
DATE OF SERVICE: 06/21/2020 Physician: Portia Metzger MD HISTORY OF PRESENT ILLNESS: This is a 55-year-old white female with a history of obesity, diabetes mellitus on insulin, hypertension, sleep apnea on CPAP, and hypothyroidism. The patient was brought to the emergency room when the noticed that she was confused and had garbled speech about 6 hours before coming to the ER. The also gave a history that over the past two to three days, she was more sleepy, which is not her normal. In the emergency room, she was evaluated for a stroke because of the altered mental status, plus garbled speech, and a CT of the head showed no stroke. The patient is being placed in Observation for possible TIA versus stroke workup, since her speech abnormality is now going on 12 hours duration. PAST MEDICAL HISTORY 1. Diabetes, on insulin. 2. Obesity. 3. Hypertension. 4. Sleep apnea on CPAP. 5. Hypothyroidism. ALLERGIES 1. CLINDAMYCIN. 2. PENICILLIN. 3. SULFA. MEDICATIONS 1. Vitamin D. 2. Flexeril p.r.n. 3. Cardura 4 mg daily. 4. Gemfibrozil 600 mg b.i.d. 5. Glargine insulin 36 units daily. 6. Levothyroxine 50 mcg every 2 days and 100 mcg the other alternating every 2 days. 7. Metformin 500 mg b.i.d. 8. Toprol-XL 100 mg daily. 9. Multivitamin daily. FAMILY HISTORY: No inherited diseases that are known. SOCIAL HISTORY: She lives with her . According to the chart, she is a nonsmoker and drinks no alcohol; however, she cannot give any details of this because of her speech problem. REVIEW OF SYSTEMS: A comprehensive review of systems was performed per chart review, pertinent positives are listed, the rest are negative. PHYSICAL EXAM GENERAL: Obese, middle-aged white female. She appears disheveled. She speaks in garbled 3-4 word sentences and even says, "I don't know how to say it." She has a tremor of her lower jaw. She is oriented times 2 (person and place). VITAL SIGNS: Blood pressure 164/91 heart rate 80 in sinus rhythm, room air saturation 98%, afebrile. HEENT: Reveals poor dentition. Her lips are very dry and tongue is dry. She has a lower jaw intermittent tremor. NECK: Very large double chin and obese neck, probably no JVD or carotid bruits. CHEST: Clear anteriorly. HEART: Normal heart sounds, but distant. BREASTS: Pendulous. ABDOMEN: Obese with normal bowel sounds, nontender. EXTREMITIES: No clubbing, cyanosis or edema. NEUROLOGIC: Normal strength of the lower and upper extremities and equal in strength. Word finding difficulty and garbled speech is present. She has no facial droop or asymmetry. She is able to swallow water through a straw. LABORATORY DATA: Sodium 131, potassium 3.9, BUN 14, creatinine 0.7, glucose 246. A1c 8.6. TSH normal at 1.39. Normal liver tests. Normal CBC. No INR was done. Her blood gases has pH of 7.41. Urinalysis showed high glucose, but otherwise unremarkable. Her [employer] was negative for COVID. Toxicology screen was negative for serum ketones, no alcohol, no Tylenol, no salicylate and negative for everything else. IMAGING: Chest x-ray was not done. Head CT showed no abnormalities. CT of the head and neck showed no significant stenoses anywhere. EKG: EKG was not done or not scanned into the record, but telemetry strip shows sinus rhythm. IMPRESSION/DIAGNOSES 1. Altered mental status. 2. Stroke-like symptoms. 3. Hypertension, poorly controlled. 4. Hyponatremia, which appears to be hypovolemic hyponatremia. 5. Dehydration. 6. Diabetes mellitus, uncontrolled. 7. Sleep apnea, on CPAP. 8. Hypothyroidism. PLAN: Place the patient in Observation status on telemetry to watch for atrial fibrillation. Obtain an EKG, if not done yet. Continue with workup for possible stroke by getting a brain MRI. If her symptoms persist until 11:00 a.m. tomorrow, that would be 24 hours of neuro deficits, she will then be considered to have a stroke and be admitted to Inpatient status, or if her brain MRI shows presence of a stroke, she will be admitted to Inpatient status. She got aspirin in the emergency room and will continue aspirin daily. Will hold her BP meds and allow permissive hypertension up to 180 systolic. Check lipids and treat per guidelines. Continue with a diabetic diet, sliding scale insulin coverage and a lower amount of her long-acting insulin, since she is likely to be eating less while here. She will need PT and OT evaluation, speech therapy evaluation. Obtain an Echo to evaluate for a cardiac source of embolus. Use her home CPAP device while here. CODE STATUS: FULL CODE. DEEP VENOUS THROMBOSIS PROPHYLAXIS: SCDs. ATTESTATION: Patient is expected to be discharged or transferred to another facility within 96 hours: Yes. TD: 06/22/2020 00:05 MTDIrineo
[2020-06-22 05:32] LABS: HGB - HEMOGLOBIN 12.6 g/dL (12.0-16.0); MEAN CORPUSCULAR HEMOGLOBIN 27.6 pg (27.0-31.0); MEAN CORPUSCULAR HGB CONC 32.2 g/dL (32.0-36.0); MEAN CORPUSCULAR VOLUME 85.7 fL (81.0-99.0); RED BLOOD COUNT 4.56 10^6/uL (4.20-5.40); RED CELL DISTRIBUTION WIDTH 14.2 % (12.0-15.0); WHITE BLOOD COUNT 6.2 x10^3/uL (4.8-10.8)
[2020-06-22 05:43] LABS: CALCIUM 9.5 mg/dL (8.5-10.3); CREATININE 0.6 mg/dL (0.4-1.0)
[2020-06-22] MEDS: ACETAMINOPHEN 325 MG TABLET PO PRN ×2 (05:55→12:00)
[2020-06-22 05:57] LABS: CHOL/HDL RATIO 3.7 (<4.4); CHOLESTEROL 128 mg/dL; HDL CHOLESTEROL 35 mg/dL; LDL CHOLESTEROL,CALCULATED 52 mg/dL; LDL/HDL RATIO 1.5 (<4.4); VLDL CHOLESTEROL 41 mg/dL
[2020-06-22] MEDS ORDERED: FAMOTIDINE 20 MG TABLET PO SCH (08:00)
[2020-06-22] MEDS: INSULIN ASPART 300 UNIT/3 ML PEN SUBQ SCH (08:13)
[2020-06-22] MEDS: SODIUM CHLORIDE FLUSH 0.9% 10 ML SYRINGE IVP SCH ×3 (08:22→23:54)
[2020-06-22] MEDS ORDERED: LEVOTHYROXINE 125 MCG TABLET PO SCH (09:00)
[2020-06-22] MEDS ORDERED: ASPIRIN EC 81 MG TABLET PO SCH (09:00)
[2020-06-22] MEDS ORDERED: INSULIN GLARGINE 300 UNIT/3 ML PEN SUBQ SCH (09:00)
[2020-06-22] MEDS ORDERED: METOPROLOL SUCCINATE 50 MG TABLET PO SCH (09:00)
[2020-06-22 11:27] LABS: HEMOGLOBIN A1c% 8.7 % (4.27-6.07)
[2020-06-22] MEDS ORDERED: INSULIN ASPART 300 UNIT/3 ML PEN SUBQ SCH (12:00)
--- NOTE | 2020-06-22 15:02 | PROVIDER PROGRESS NOTE ---
Subjective - Prog Note Date Prog Note Date: 06/22/20 - Subjective Subjective: She still has difficulty with her speech. She feels like she understands questions correctly but cannot say what she would like. Does complain of headache but no change in vision. Denies any focal deficits. Current Medications - Current Medications Current Medications: Active Medications Acetaminophen (Acetaminophen 325 Mg Tablet) 650 mg PO Q4HR PRN PRN Reason: Pain or Fever > 38C (100.4F) Last Admin: 06/22/20 12:00 Dose: 650 mg Documented by: Aspirin (Aspirin Ec 81 Mg Tablet) 81 mg PO DAILY [facility] Last Admin: 06/22/20 08:13 Dose: 81 mg Documented by: Atorvastatin Calcium (Atorvastatin 40 Mg Tablet) 80 mg PO QPM [facility] Last Admin: 06/21/20 21:50 Dose: 80 mg Documented by: Insulin Aspart (Insulin Aspart 300 Unit/3 Ml Pen) 1 - 9 unit SUBQ 0800,1200,1700,2100 [facility]; Protocol Last Admin: 06/22/20 12:01 Dose: 1 unit Documented by: Insulin Glargine (Insulin Glargine 300 Unit/3 Ml Pen) 50 unit SUBQ DAILY [facility] Levothyroxine Sodium (Levothyroxine 125 Mcg Tablet) 125 mcg PO DAILY [facility] Last Admin: 06/22/20 08:13 Dose: 125 mcg Documented by: Metoprolol Succinate (Metoprolol Succinate 50 Mg Tablet) 100 mg PO DAILY [facility] Last Admin: 06/22/20 08:13 Dose: 100 mg Documented by: Sodium Chloride (Sodium Chloride Flush 0.9% 10 Ml Syringe) 10 ml IVP PRN PRN PRN Reason: NEEDED PER PROVIDER ORDERS Last Admin: 06/22/20 08:21 Dose: 10 ml Documented by: Sodium Chloride (Sodium Chloride Flush 0.9% 10 Ml Syringe) 10 ml IVP 0100,0900,1700 [facility] Last Admin: 06/22/20 08:22 Dose: Not Given Documented by: Doxazosin [Cardura] 6 mg PO DAILY 06/12/14 Metoprolol Succinate 100 mg PO DAILY 06/12/14 Insulin Glargine [Lantus Solostar] 50 unit SUBQ DAILY 10/25/17 Albuterol Sulfate [Proair Hfa Inhaler] 2 puffs INH PRN PRN 06/22/20 Atorvastatin Calcium [Lipitor] 80 mg PO QPM 06/22/20 Cyclobenzaprine HCl 10 mg PO PRN PRN 06/22/20 Levothyroxine [Synthroid] 125 mcg PO DAILY 06/22/20 Losartan Potassium 25 mg PO DAILY 06/22/20 Metformin HCl [Glucophage] 1,000 mg PO BID 06/22/20 Objective - Vital Signs/Intake & Output Reviewed Vital Signs: Yes Vital Signs: Vital Signs x48h Temp Pulse Pulse Resp BP Pulse Ox 06/22/20 11:44 36.5 C 70 18 172/95 H 95 06/22/20 07:45 36.2 C L 81 20 145/82 H 94 Intake & Output: Intake & Output 06/19/20 06/20/20 06/21/20 06/22/20 23:59 23:59 23:59 23:59 Intake Total 452.5 1346 Output Total 300 200 Balance 152.5 1146 - Objective General Appearance: positive: No acute distress, Alert Eyes Bilateral: positive: Normal inspection, PERRL, EOMI, Conjunctivae nml ENT: positive: ENT inspection nml Neck: positive: Nml inspection Respiratory: positive: No respiratory distress. negative: Wheezes, Rales Cardiovascular: positive: Regular rate & rhythm, No murmur. negative: Tachycardia Abdomen: positive: Non-tender, No distention. negative: Tenderness Skin: positive: Warm Neurologic/Psychiatric: positive: Motor nml (She has 5 out of 5 motor strength in all 4 extremities.), Sensation nml, Slurred/abnml speech (Her speech is not slurred but she does have expressive aphasia. She has difficulty with repetition.). negative: Disoriented to person, Disoriented to place, Facial droop - Lab Results Fish Bones: 06/22/20 05:22 06/22/20 05:22 Other Labs: Lab Results x24hrs 06/22/20 06/22/20 06/22/20 Range/Units 05:22 05:22 05:22 WBC 6.2 (4.8-10.8) x10^3/uL RBC 4.56 (4.20-5.40) 10^6/uL Hgb 12.6 (12.0-16.0) g/dL Hct 39.1 (37.0-47.0) % MCV 85.7 (81.0-99.0) fL MCH 27.6 (27.0-31.0) pg MCHC 32.2 (32.0-36.0) g/dL RDW 14.2 (12.0-15.0) % Plt Count 234 (130-450) 10^3/uL MPV 9.0 (7.9-10.8) fL Neut # (Auto) (1.5-6.6) 10^3/uL Lymph # (Auto) (1.5-3.5) 10^3/uL [place] # (Auto) (0.0-1.0) 10^3/uL Eos # (Auto) (0.0-0.7) 10^3/uL Baso # (Auto) (0.0-0.1) 10^3/uL Absolute Nucleated RBC x10^3/uL Nucleated RBC % /100WBC VBG pH (7.31-7.41) VBG pCO2 (41-51) mmHg VBG pO2 (25-47) mmHg VBG HCO3 (23-28) mmol/L VBG Total CO2 (24-29) mmol/L VBG O2 Saturation (60-80) % VBG Base Excess (-2 - +2) mmol/L Sodium 136 (135-145) mmol/L Potassium 4.0 (3.5-5.0) mmol/L Chloride 102 (101-111) mmol/L Carbon Dioxide 22 (21-32) mmol/L Anion Gap 12.0 (6-13) BUN 14 (6-20) mg/dL Creatinine 0.6 (0.4-1.0) mg/dL Estimated GFR (MDRD) 103 (>89) Glucose 224 H (70-100) mg/dL Estimat Average Glucose (70-100) mg/dL Hemoglobin A1c % (4.27-6.07) % Calcium 9.5 (8.5-10.3) mg/dL Magnesium 2.0 (1.7-2.8) mg/dL Total Bilirubin (0.2-1.0) mg/dL AST (10-42) IU/L ALT (10-60) IU/L Alkaline Phosphatase (42-121) IU/L Total Protein (6.7-8.2) g/dL Albumin (3.2-5.5) g/dL Globulin (2.1-4.2) g/dL Albumin/Globulin Ratio (1.0-2.2) Triglycerides 203 H ( - 149) mg/dL Cholesterol 128 ( - 199) mg/dL LDL Cholesterol, Calc 52 ( - 129) mg/dL VLDL Cholesterol 41 mg/dL HDL Cholesterol 35 L (60 - ) mg/dL LDL/HDL Ratio 1.5 (<4.4) Cholesterol/HDL Ratio 3.7 (<4.4) Lipase (22-51) U/L TSH (0.34-5.60) uIU/mL Urine Color Urine Clarity (CLEAR) Urine pH (5.0-7.5) PH Ur Specific [place] (1.002-1.030) Urine Protein (NEGATIVE) mg/dL Urine Glucose (UA) (NEGATIVE) mg/dL Urine Ketones (NEGATIVE) mg/dL Urine Occult Blood (NEGATIVE) Urine Nitrite (NEGATIVE) Urine Bilirubin (NEGATIVE) Urine Urobilinogen (NORMAL) E.U./dL Ur Leukocyte Esterase (NEGATIVE) Ur Microscopic Review Urine Culture Comments Nasal Adenovirus (PCR) Nasal B. parapertussis DNA (PCR) Nasal Coronavir 229E PCR Nasal Coronavir HKU1 PCR Nasal Coronavir NL63 PCR Nasal Coronavir OC43 PCR Nasal Enterovir/Rhinovir PCR Nasal Influenza B PCR Nasal Influenza A PCR Nasal Parainfluen 1 PCR Nasal Parainfluen 2 PCR Nasal Parainfluen 3 PCR Nasal Parainfluen 4 PCR Nasal RSV (PCR) Nasal B.pertussis DNA PCR Nasal C.pneumoniae (PCR) [place] Metapneumo PCR Nasal M.pneumoniae (PCR) Nasal SARS-CoV-2 (PCR) Salicylates mg/dL Urine Opiates Screen (NEGATIVE) Ur Oxycodone Screen (NEGATIVE) Urine Methadone Screen (NEGATIVE) Ur Propoxyphene Screen (NEGATIVE) Acetaminophen (10-30) ug/mL Ur Barbiturates Screen (NEGATIVE) Ur Tricyclics Screen (NEGATIVE) Ur Phencyclidine Scrn (NEGATIVE) Ur Amphetamine Screen (NEGATIVE) U Methamphetamines Scrn (NEGATIVE) U Benzodiazepines Scrn (NEGATIVE) Urine Cocaine Screen (NEGATIVE) U Cannabinoids Screen (NEGATIVE) Ethyl Alcohol mg/dL Serum Ketones (NEGATIVE) 06/22/20 06/21/20 06/21/20 Range/Units 05:22 19:28 17:06 WBC (4.8-10.8) x10^3/uL RBC (4.20-5.40) 10^6/uL Hgb (12.0-16.0) g/dL Hct (37.0-47.0) % MCV (81.0-99.0) fL MCH (27.0-31.0) pg MCHC (32.0-36.0) g/dL RDW (12.0-15.0) % Plt Count (130-450) 10^3/uL MPV (7.9-10.8) fL Neut # (Auto) (1.5-6.6) 10^3/uL Lymph # (Auto) (1.5-3.5) 10^3/uL [place] # (Auto) (0.0-1.0) 10^3/uL Eos # (Auto) (0.0-0.7) 10^3/uL Baso # (Auto) (0.0-0.1) 10^3/uL Absolute Nucleated RBC x10^3/uL Nucleated RBC % /100WBC VBG pH (7.31-7.41) VBG pCO2 (41-51) mmHg VBG pO2 (25-47) mmHg VBG HCO3 (23-28) mmol/L VBG Total CO2 (24-29) mmol/L VBG O2 Saturation (60-80) % VBG Base Excess (-2 - +2) mmol/L Sodium (135-145) mmol/L Potassium (3.5-5.0) mmol/L Chloride (101-111) mmol/L Carbon Dioxide (21-32) mmol/L Anion Gap (6-13) BUN (6-20) mg/dL Creatinine (0.4-1.0) mg/dL Estimated GFR (MDRD) (>89) Glucose (70-100) mg/dL Estimat Average Glucose 203 H (70-100) mg/dL Hemoglobin A1c % 8.7 H (4.27-6.07) % Calcium (8.5-10.3) mg/dL Magnesium (1.7-2.8) mg/dL Total Bilirubin (0.2-1.0) mg/dL AST (10-42) IU/L ALT (10-60) IU/L Alkaline Phosphatase (42-121) IU/L Total Protein (6.7-8.2) g/dL Albumin (3.2-5.5) g/dL Globulin (2.1-4.2) g/dL Albumin/Globulin Ratio (1.0-2.2) Triglycerides ( - 149) mg/dL Cholesterol ( - 199) mg/dL LDL Cholesterol, Calc ( - 129) mg/dL VLDL Cholesterol mg/dL HDL Cholesterol (60 - ) mg/dL LDL/HDL Ratio (<4.4) Cholesterol/HDL Ratio (<4.4) Lipase (22-51) U/L TSH (0.34-5.60) uIU/mL Urine Color YELLOW Urine Clarity CLEAR (CLEAR) Urine pH 6.0 (5.0-7.5) PH Ur Specific [place] 1.020 (1.002-1.030) Urine Protein NEGATIVE (NEGATIVE) mg/dL Urine Glucose (UA) 250 H (NEGATIVE) mg/dL Urine Ketones NEGATIVE (NEGATIVE) mg/dL Urine Occult Blood NEGATIVE (NEGATIVE) Urine Nitrite NEGATIVE (NEGATIVE) Urine Bilirubin NEGATIVE (NEGATIVE) Urine Urobilinogen 0.2 (NORMAL) (NORMAL) E.U./dL Ur Leukocyte Esterase NEGATIVE (NEGATIVE) Ur Microscopic Review NOT INDICATED Urine Culture Comments NOT INDICATED Nasal Adenovirus (PCR) NOT DETECTED Nasal B. parapertussis DNA (PCR) NOT DETECTED Nasal Coronavir 229E PCR NOT DETECTED Nasal Coronavir HKU1 PCR NOT DETECTED Nasal Coronavir NL63 PCR NOT DETECTED Nasal Coronavir OC43 PCR NOT DETECTED Nasal Enterovir/Rhinovir PCR NOT DETECTED Nasal Influenza B PCR NOT DETECTED Nasal Influenza A PCR NOT DETECTED Nasal Parainfluen 1 PCR NOT DETECTED Nasal Parainfluen 2 PCR NOT DETECTED Nasal Parainfluen 3 PCR NOT DETECTED Nasal Parainfluen 4 PCR NOT DETECTED Nasal RSV (PCR) NOT DETECTED Nasal B.pertussis DNA PCR NOT DETECTED Nasal C.pneumoniae (PCR) NOT DETECTED [place] Metapneumo PCR NOT DETECTED Nasal M.pneumoniae (PCR) NOT DETECTED Nasal SARS-CoV-2 (PCR) NOT DETECTED Salicylates mg/dL Urine Opiates Screen NEGATIVE (NEGATIVE) Ur Oxycodone Screen NEGATIVE (NEGATIVE) Urine Methadone Screen NEGATIVE (NEGATIVE) Ur Propoxyphene Screen NEGATIVE (NEGATIVE) Acetaminophen (10-30) ug/mL Ur Barbiturates Screen NEGATIVE (NEGATIVE) Ur Tricyclics Screen NEGATIVE (NEGATIVE) Ur Phencyclidine Scrn NEGATIVE (NEGATIVE) Ur Amphetamine Screen NEGATIVE (NEGATIVE) U Methamphetamines Scrn NEGATIVE (NEGATIVE) U Benzodiazepines Scrn NEGATIVE (NEGATIVE) Urine Cocaine Screen NEGATIVE (NEGATIVE) U Cannabinoids Screen NEGATIVE (NEGATIVE) Ethyl Alcohol mg/dL Serum Ketones (NEGATIVE) 06/21/20 06/21/20 06/21/20 Range/Units 16:59 16:59 16:59 WBC (4.8-10.8) x10^3/uL RBC (4.20-5.40) 10^6/uL Hgb (12.0-16.0) g/dL Hct (37.0-47.0) % MCV (81.0-99.0) fL MCH (27.0-31.0) pg MCHC (32.0-36.0) g/dL RDW (12.0-15.0) % Plt Count (130-450) 10^3/uL MPV (7.9-10.8) fL Neut # (Auto) (1.5-6.6) 10^3/uL Lymph # (Auto) (1.5-3.5) 10^3/uL [place] # (Auto) (0.0-1.0) 10^3/uL Eos # (Auto) (0.0-0.7) 10^3/uL Baso # (Auto) (0.0-0.1) 10^3/uL Absolute Nucleated RBC x10^3/uL Nucleated RBC % /100WBC VBG pH 7.411 H (7.31-7.41) VBG pCO2 38.5 L (41-51) mmHg VBG pO2 48.2 H (25-47) mmHg VBG HCO3 23.9 (23-28) mmol/L VBG Total CO2 25.1 (24-29) mmol/L VBG O2 Saturation 85.2 H (60-80) % VBG Base Excess -0.5 (-2 - +2) mmol/L Sodium (135-145) mmol/L Potassium (3.5-5.0) mmol/L Chloride (101-111) mmol/L Carbon Dioxide (21-32) mmol/L Anion Gap (6-13) BUN (6-20) mg/dL Creatinine (0.4-1.0) mg/dL Estimated GFR (MDRD) (>89) Glucose (70-100) mg/dL Estimat Average Glucose 200 H (70-100) mg/dL Hemoglobin A1c % 8.6 H (4.27-6.07) % Calcium (8.5-10.3) mg/dL Magnesium (1.7-2.8) mg/dL Total Bilirubin (0.2-1.0) mg/dL AST (10-42) IU/L ALT (10-60) IU/L Alkaline Phosphatase (42-121) IU/L Total Protein (6.7-8.2) g/dL Albumin (3.2-5.5) g/dL Globulin (2.1-4.2) g/dL Albumin/Globulin Ratio (1.0-2.2) Triglycerides ( - 149) mg/dL Cholesterol ( - 199) mg/dL LDL Cholesterol, Calc ( - 129) mg/dL VLDL Cholesterol mg/dL HDL Cholesterol (60 - ) mg/dL LDL/HDL Ratio (<4.4) Cholesterol/HDL Ratio (<4.4) Lipase (22-51) U/L TSH 1.39 (0.34-5.60) uIU/mL Urine Color Urine Clarity (CLEAR) Urine pH (5.0-7.5) PH Ur Specific [place] (1.002-1.030) Urine Protein (NEGATIVE) mg/dL Urine Glucose (UA) (NEGATIVE) mg/dL Urine Ketones (NEGATIVE) mg/dL Urine Occult Blood (NEGATIVE) Urine Nitrite (NEGATIVE) Urine Bilirubin (NEGATIVE) Urine Urobilinogen (NORMAL) E.U./dL Ur Leukocyte Esterase (NEGATIVE) Ur Microscopic Review Urine Culture Comments Nasal Adenovirus (PCR) Nasal B. parapertussis DNA (PCR) Nasal Coronavir 229E PCR Nasal Coronavir HKU1 PCR Nasal Coronavir NL63 PCR Nasal Coronavir OC43 PCR Nasal Enterovir/Rhinovir PCR Nasal Influenza B PCR Nasal Influenza A PCR Nasal Parainfluen 1 PCR Nasal Parainfluen 2 PCR Nasal Parainfluen 3 PCR Nasal Parainfluen 4 PCR Nasal RSV (PCR) Nasal B.pertussis DNA PCR Nasal C.pneumoniae (PCR) [place] Metapneumo PCR Nasal M.pneumoniae (PCR) Nasal SARS-CoV-2 (PCR) Salicylates mg/dL Urine Opiates Screen (NEGATIVE) Ur Oxycodone Screen (NEGATIVE) Urine Methadone Screen (NEGATIVE) Ur Propoxyphene Screen (NEGATIVE) Acetaminophen (10-30) ug/mL Ur Barbiturates Screen (NEGATIVE) Ur Tricyclics Screen (NEGATIVE) Ur Phencyclidine Scrn (NEGATIVE) Ur Amphetamine Screen (NEGATIVE) U Methamphetamines Scrn (NEGATIVE) U Benzodiazepines Scrn (NEGATIVE) Urine Cocaine Screen (NEGATIVE) U Cannabinoids Screen (NEGATIVE) Ethyl Alcohol mg/dL Serum Ketones (NEGATIVE) 06/21/20 06/21/20 Range/Units 16:59 16:59 WBC 6.0 (4.8-10.8) x10^3/uL RBC 4.67 (4.20-5.40) 10^6/uL Hgb 13.0 (12.0-16.0) g/dL Hct 39.5 (37.0-47.0) % MCV 84.6 (81.0-99.0) fL MCH 27.8 (27.0-31.0) pg MCHC 32.9 (32.0-36.0) g/dL RDW 14.1 (12.0-15.0) % Plt Count 246 (130-450) 10^3/uL MPV 9.1 (7.9-10.8) fL Neut # (Auto) 4.4 (1.5-6.6) 10^3/uL Lymph # (Auto) 1.0 L (1.5-3.5) 10^3/uL [place] # (Auto) 0.4 (0.0-1.0) 10^3/uL Eos # (Auto) 0.1 (0.0-0.7) 10^3/uL Baso # (Auto) 0.0 (0.0-0.1) 10^3/uL Absolute Nucleated RBC 0.00 x10^3/uL Nucleated RBC % 0.0 /100WBC VBG pH (7.31-7.41) VBG pCO2 (41-51) mmHg VBG pO2 (25-47) mmHg VBG HCO3 (23-28) mmol/L VBG Total CO2 (24-29) mmol/L VBG O2 Saturation (60-80) % VBG Base Excess (-2 - +2) mmol/L Sodium 131 L (135-145) mmol/L Potassium 3.9 (3.5-5.0) mmol/L Chloride 98 L (101-111) mmol/L Carbon Dioxide 23 (21-32) mmol/L Anion Gap 10.0 (6-13) BUN 14 (6-20) mg/dL Creatinine 0.7 (0.4-1.0) mg/dL Estimated GFR (MDRD) 87 L (>89) Glucose 246 H (70-100) mg/dL Estimat Average Glucose (70-100) mg/dL Hemoglobin A1c % (4.27-6.07) % Calcium 9.5 (8.5-10.3) mg/dL Magnesium (1.7-2.8) mg/dL Total Bilirubin 0.9 (0.2-1.0) mg/dL AST 22 (10-42) IU/L ALT 36 (10-60) IU/L Alkaline Phosphatase 54 (42-121) IU/L Total Protein 7.7 (6.7-8.2) g/dL Albumin 4.3 (3.2-5.5) g/dL Globulin 3.4 (2.1-4.2) g/dL Albumin/Globulin Ratio 1.3 (1.0-2.2) Triglycerides ( - 149) mg/dL Cholesterol ( - 199) mg/dL LDL Cholesterol, Calc ( - 129) mg/dL VLDL Cholesterol mg/dL HDL Cholesterol (60 - ) mg/dL LDL/HDL Ratio (<4.4) Cholesterol/HDL Ratio (<4.4) Lipase 16 L (22-51) U/L TSH (0.34-5.60) uIU/mL Urine Color Urine Clarity (CLEAR) Urine pH (5.0-7.5) PH Ur Specific [place] (1.002-1.030) Urine Protein (NEGATIVE) mg/dL Urine Glucose (UA) (NEGATIVE) mg/dL Urine Ketones (NEGATIVE) mg/dL Urine Occult Blood (NEGATIVE) Urine Nitrite (NEGATIVE) Urine Bilirubin (NEGATIVE) Urine Urobilinogen (NORMAL) E.U./dL Ur Leukocyte Esterase (NEGATIVE) Ur Microscopic Review Urine Culture Comments Nasal Adenovirus (PCR) Nasal B. parapertussis DNA (PCR) Nasal Coronavir 229E PCR Nasal Coronavir HKU1 PCR Nasal Coronavir NL63 PCR Nasal Coronavir OC43 PCR Nasal Enterovir/Rhinovir PCR Nasal Influenza B PCR Nasal Influenza A PCR Nasal Parainfluen 1 PCR Nasal Parainfluen 2 PCR Nasal Parainfluen 3 PCR Nasal Parainfluen 4 PCR Nasal RSV (PCR) Nasal B.pertussis DNA PCR Nasal C.pneumoniae (PCR) [place] Metapneumo PCR Nasal M.pneumoniae (PCR) Nasal SARS-CoV-2 (PCR) Salicylates < 6.0 mg/dL Urine Opiates Screen (NEGATIVE) Ur Oxycodone Screen (NEGATIVE) Urine Methadone Screen (NEGATIVE) Ur Propoxyphene Screen (NEGATIVE) Acetaminophen < 10 L (10-30) ug/mL Ur Barbiturates Screen (NEGATIVE) Ur Tricyclics Screen (NEGATIVE) Ur Phencyclidine Scrn (NEGATIVE) Ur Amphetamine Screen (NEGATIVE) U Methamphetamines Scrn (NEGATIVE) U Benzodiazepines Scrn (NEGATIVE) Urine Cocaine Screen (NEGATIVE) U Cannabinoids Screen (NEGATIVE) Ethyl Alcohol < 5.0 mg/dL Serum Ketones NEGATIVE (NEGATIVE) ABX Reporting Has patient been on IV antibiotics over the past 48 hours?: No Assessment/Plan - Problem List (1) Expressive aphasia Impression: She still has ongoing expressive aphasia and the concern is for a possible stroke. She has difficulty expressing herself although her comprehension appears intact. She has no other focal deficits on exam. Unfortunately, we are unable to obtain an MRI of the brain today as the MRI machine is requiring maintenance. We are hopeful that I will be up and running again tomorrow and we will obtain MRI then. If MRI is still down then we discussed possible transfer for imaging given her ongoing symptoms. She has been continued on aspirin and remains on Lipitor. We have allowed for permissive hypertension given concern for stroke and we will resume her home antihypertensives tomorrow. Speech therapy has been consulted and she will need outpatient follow-up. An echocardiogram will be obtained during this hospitalization. (2) Hypertension Impression: We have allowed permissive hypertension given the concern for stroke. We will resume her home hypertensives tomorrow morning. (3) Type 2 diabetes mellitus Impression: Her A1c is 8.6%. We have resumed her home dose of Lantus plus sliding scale. Carb controlled diet. We will place a tobacco educator consult. (4) Hypothyroidism Impression: Her TSH is just mildly elevated. We will continue her current dose of Synthroid and ask her to repeat a TSH in 4 to 6 weeks. (5) QUYNH on CPAP Impression: Continue home CPAP.
[2020-06-22] MEDS ORDERED: LORazepam 2 MG/ML VIAL ONE (17:15)
[2020-06-22] MEDS ORDERED: LORazepam 2 MG/ML VIAL IVP STA (17:20)
--- NOTE | 2020-06-22 17:56 | CT Report ---
PROCEDURE: HEAD WO INDICATIONS: Seizure. Aphasia. Dysmetria. TECHNIQUE: Noncontrast 4.5 mm thick angled axial sections acquired from the foramen magnum to the vertex. For r adiation dose reduction, the following was used: automated exposure control, adjustment of mA and/or kV according to patient size. COMPARISON: 06/21/2020 FINDINGS: Image quality: Excellent. CSF spaces: Basal cisterns are patent. No extra-axial fluid collections. Ventricles are normal in size and shape. Brain: No midline shift. No intracranial masses or hemorrhage. Calle-white matter interface is norm al. Skull and face: Calvarium and visualized facial bones are intact, without suspicious lesions. Sinuses: Visualized sinuses and mastoids are clear. IMPRESSION: No interval development of acute process. Reviewed by: Ju Bhandari MD on 06/22/2020 4:55 PM [place] Approved by: Ju Bhandari MD on 06/22/2020 4:55 PM [place] Station ID: [id number]
[2020-06-22 18:08] LABS: BASOPHILS % (AUTO) 0.3 %; EOSINOPHILS # (AUTO) 0.2 10^3/uL (0.0-0.7); EOSINOPHILS % (AUTO) 3.6 %; HGB - HEMOGLOBIN 13.1 g/dL (12.0-16.0); LYMPHOCYTES % (AUTO) 17.6 %; MEAN CORPUSCULAR HGB CONC 32.4 g/dL (32.0-36.0); MEAN CORPUSCULAR VOLUME 86.3 fL (81.0-99.0); MEAN PLATELET VOLUME 9.1 fL (7.9-10.8); MONOCYTES # (AUTO) 0.4 10^3/uL (0.0-1.0); MONOCYTES % (AUTO) 6.7 %; NEUTROPHILS # (AUTO) 4.2 10^3/uL (1.5-6.6); NEUTROPHILS % (AUTO) 71.1 %; PLT - PLATELET COUNT 237 10^3/uL (130-450); RED BLOOD COUNT 4.68 10^6/uL (4.20-5.40); RED CELL DISTRIBUTION WIDTH 14.4 % (12.0-15.0); WHITE BLOOD COUNT 5.8 x10^3/uL (4.8-10.8)
[2020-06-22] MEDS ORDERED: LACTATED RINGERS 1,000 ML IV ONE (18:23)
[2020-06-22 18:24] LABS: CALCIUM 9.5 mg/dL (8.5-10.3); CREATININE 0.8 mg/dL (0.4-1.0); MAGNESIUM 2.1 mg/dL (1.7-2.8)
[2020-06-22] MEDS: INSULIN REGULAR HUMAN 300 UNIT/3 ML VIAL SUBQ SCH (19:17)
[2020-06-22] MEDS ORDERED: levETIRAcetam INJ 1,000 MG in SODIUM CHLORIDE 0.9% 100ML 100 ML IV STA (19:33)
[2020-06-22] MEDS ORDERED: levETIRAcetam INJ 500 MG in SODIUM CHLORIDE 0.9% 100ML 100 ML IV SCH (21:00)
[2020-06-22] MEDS: ATORVASTATIN 40 MG TABLET PO SCH (21:23)
--- NOTE | 2020-06-22 23:18 | DISCHARGE SUMMARY ---
Discharge Summary Admit Date: 06/22/20 Discharge Date: 06/22/20 Discharging Provider: Irene Panchal MD Primary Care Provider: ANABEL Wilson Code Status: Attempt Resuscitation Condition at Discharge: Serious Discharge Disposition: 02 Transfer Acute Care Hosp Discharge Facility Name: [facility] - DIAGNOSES Discharge Diagnoses with Status of Each Condition: 1. Acute metabolic encephalopathy with expressive aphasia, disorientation 2. Witnessed seizure 3. Type 2 diabetes mellitus, uncontrolled, with complications, on long-term insulin 4. Morbid obesity 5. Hypertension 6. Obstructive sleep apnea on CPAP 7. Hypothyroidism - HPI History of Present Illness: She is a 55-year-old white female with a history of obesity, diabetes mellitus on insulin, hypertension, obstructive sleep apnea and hypothyroidism who presented with a 2 today 3 history of been becoming more and more sleepy. described that is not normal for her since she is a very active busy per son. Then 6 hours before coming to the emergency room she became confused, garbled speech. Unclear why there was a 6-hour delay before she came to the ER. In the emergency room she was evaluated as a stroke and CT of the head was negative as well as CT angiogram. She was placed in observation for possible TIA versus stroke work-up. On exam she was an obese middle-aged white female that was disheveled, speaking in garbled 3-4 word sentences. At 1 point even said "I do not know how to say it". She had a slight tremor of her lower jaw. She was oriented to person and place. Poor dentition with dry lips. Unable to assess for JVD or bruits due to a very large double chin and obese neck. But it was a supple neck. There were no focal neurological deficits. No facial droop or asymmetry. Able to swallow water. Just had expressive aphasia. White cell count was normal at 6. Chemistries were all normal except for an elevated glucose of 224 with a glucose A1c of 8.7%. - CONSULTS | PROCEDURES Procedures: 1. Head CT without acute intracranial abnormality. 2. Head and neck CT angiogram without any significant intracranial arterial abnormalities or neck arterial abnormalities. No masses or abnormal enhancement can be seen. 3. Repeat CT after seizure showed no acute interval development of acute process. - HOSPITAL COURSE Hospital Course: She was placed on telemetry and had no cardiac arrhythmias. She had a witnessed seizure at approximately 1500 on the day of admission. Continue to have c onfusion, garbled speech but no focal deficits. It was not felt that she returned to baseline during her stay. White cell count remained normal. Repeat CT of head was normal. She was scheduled for an echocardiogram and an MRI. However her asked for her to be transferred to a higher level of care. CT and MRI and lumbar puncture can be done here. However he felt that there was lack of communication and would feel better if she was transferred to [place]. [place] did not have any beds and as such he requested transfer to [facility]. I spoke to Dr. William Ellsworth who accepted the patient in transfer.He is asking that we please load her with 4 g of Keppra. 2000 mg now over an hour, and then another 2000 mg. His thought process is that of a metabolic encephalopathy of unknown cause. He has looked at the CT scans and does not see stroke. After 3 days of altered mental status and then seizure the thought is that she would have a stroke seen on CT. He feels that this is a complicated seizure problem that requires loading with Keppra. She will need an MRI when she gets there, probably a lumbar puncture. After writing the order for the Keppra, [place] pharmacy has declined to verify beyond the initial 2000 mg dose since she received 1500 mg today. So she will get 1500 mg+ 2000mg + 500 mg before transfer. Exam at discharge shows her to have a temperature of 98.8. Pulse is 79 and sinus on telemetry. Blood pressure 187/96. Respirations 17 and she is 99% sat urated on room air. She is able to ambulate by going from supine to standing. We needed a gait belt and a walker. She is drowsy, lethargic. Unable to say where she is but knows who she is. She is unable to remember anything that is happened in the last 24 hours. She has purposeful movements and is able to move all extremities and will grab things, make herself more comfortable by moving in bed. Lungs are clear with diminished breath sounds at the bases. Unlabored shallow respiration. Regular rate and rhythm. Abdomen is with obesity, normal bowel sounds, no rebound. She has nonpitting mild edema. She has Geno underneath her right breast. And underneath her abdominal pannus. Greater than 30 minutes was spent coordinating discharge.I have spoken to the twice. I will be calling her again to let him know that [facility] has accepted her and we are working on a ground ambulance transfer. 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 - ALLERGIES Allergies/Adverse Reactions: Allergies Allergy/AdvReac Type Severity Reaction Status Date / Time clindamycin Allergy Respiratory Verified 06/21/20 16:45 Penicillins Allergy Unknown Verified 06/21/20 16:45 Sulfa (Sulfonamide Allergy Unknown Verified 06/21/20 16:45 Antibiotics) - MEDICATIONS Home Medications: Ambulatory Orders Medication Instructions Recorded Confirmed Doxazosin [Cardura] 6 mg PO DAILY 06/12/14 06/22/20 Metoprolol Succinate 100 mg PO DAILY 06/12/14 06/22/20 Insulin Glargine [Lantus Solostar] 50 unit SUBQ DAILY 10/25/17 06/22/20 Albuterol Sulfate [Proair Hfa 2 puffs INH PRN PRN 06/22/20 06/22/20 Inhaler] Atorvastatin Calcium [Lipitor] 80 mg PO QPM 06/22/20 06/22/20 Cyclobenzaprine HCl 10 mg PO PRN PRN 06/22/20 06/22/20 Levothyroxine [Synthroid] 125 mcg PO DAILY 06/22/20 06/22/20 Losartan Potassium 25 mg PO DAILY 06/22/20 06/22/20 Metformin HCl [Glucophage] 1,000 mg PO BID 06/22/20 06/22/20 - LABS Result Diagrams: 06/22/20 18:00 06/22/20 18:00
[2020-06-22] MEDS ORDERED: levETIRAcetam INJ 2,000 MG in SODIUM CHLORIDE 0.9% 100ML 100 ML IV SCH (23:45)
[2020-06-22] MEDS ORDERED: LACTATED RINGERS 1,000 ML IV SCH (23:45)
[2020-06-23] MEDS: INSULIN REGULAR HUMAN 300 UNIT/3 ML VIAL SUBQ SCH (00:22)
[2020-06-23] MEDS ORDERED: levETIRAcetam INJ 500 MG in SODIUM CHLORIDE 0.9% 100ML 100 ML IV SCH (01:00)
[2020-06-23 01:02] VITALS: BP 154/87
[2020-06-23] MEDS ORDERED: METOPROLOL SUCCINATE 50 MG TABLET PO SCH (09:00)
[2020-06-23] MEDS ORDERED: LOSARTAN 50 MG TABLET PO SCH (09:00)
[2020-06-23] MEDS ORDERED: INSULIN GLARGINE 300 UNIT/3 ML PEN SUBQ SCH (09:00)
[2020-06-23] MEDS ORDERED: DOXAZOSIN 4 MG TABLET PO SCH (09:00)
== END 2020-06-23 00:54 | disposition short-term general hospital (02) ==
LOC: EDUNIT# → ED 16:23 → MS2 20:16 → ICU 06-22 17:40
PROVIDERS: ADMIT Internal Medicine; ATTEND Specialist
DX: G93.41 Metabolic encephalopathy (principal); E11.65 Type 2 diabetes mellitus with hyperglycemia; E86.0 Dehydration; R47.01 Aphasia; I10 Essential (primary) hypertension; G47.33 Obstructive sleep apnea (adult) (pediatric); E78.00 Pure hypercholesterolemia, unspecified; E03.9 Hypothyroidism, unspecified; E66.01 Morbid (severe) obesity due to excess calories; Z68.41 Body mass index [BMI] 40.0-44.9, adult; Z20.822 Contact with and (suspected) exposure to COVID-19; Z79.4 Long term (current) use of insulin; Z79.51 Long term (current) use of inhaled steroids; Z79.899 Other long term (current) drug therapy
CPT/HCPCS: 0202U; 36415; 70450; 70496; 70498; 80048; 80053; 80061; 80306; 80307; 80320; 80329; 81003; 82009; 82550; 82803; 83036; 83605; 83690; 83735; 84443; 85025; 85027; 87150; 92523; 96365; 96366; 96367; 96375; 99285; A9270; G0378; J1815; J2060; J7120; Q9967; 81001; 83721; 84100; 87086

== ENCOUNTER 2020-06-23 01:00 | Outpatient (CLI) | payer MEDICAID | END 2020-06-23 01:01 | disposition short-term general hospital (02) | LOC: EMS 01:00 | DX: G40.909 Epilepsy, unspecified, not intractable, without status epilepticus (principal) | CPT/HCPCS: A0425; A0428 ==

== ENCOUNTER 2020-08-06 10:31 | Outpatient (CLI) | payer MEDICAID ==
--- NOTE | 2020-08-06 11:02 | SLEEP CARE CONSULTATION ---
Information from patient questionnaire entered by Leilani Pichardo. I have reviewed and concur with the information entered by Leilani Pichardo. This document represents the service I personally performed and the decisions made by me, Thuy Calvo ARNP. History of Present Illness Service Date and Time: 08/06/2020 1031 Previous diagnosis: Severe, Obstructive Sleep Apnea-Hypopnea Syndrome AHI: 30.5 (in 2017)(2000) Reason for follow up: annual (last seen 06/2019) Equipment type: CPAP Equipment obtained from: [employer] (getting supplies as needed) Mask style: Nasal (over the nose) Mask brand: Respironics (Wisp) Backup mask available: Yes (old mask) Last cushion change: yesterday Prior sleep studies: Yes Year and Where: 2016 - [facility]; 2000 - [facility] Type of Sleep Study: Polysomnography HPI additional information: GUILLERMO EDOUARD was diagnosed to have severe, AHI 30.5, obstructive sleep apnea- hypopnea syndrome and returned today for CPAP therapy annual follow-up. CPAP Compliance Data - Data Reviewed with Patient Average duration of nightly device use: 13 hr 21 min Compliance rate %: 96.7 (60 days)(64.4 for 180) Current pressure setting (cmH2O): 10-15 Humidity settin Heated hose settin Average residual AHI: 1.8 Average large leak: 2 min 46 sec Compliance data discussion: She states she uses the CPAP every night because she cannot sleep without it. She does not know why the machine does not reflect this. It is showing gaps in use. She thought the pressure was feeling too low but since getting out of hospital in June 24 she thinks the pressure feels comfortable now. Subjective Missed days of use due to: reports: illness (went to hospital due to seizures) Patient concerns: denies: aerophagia, mask discomfort, air blowing in eyes, mask leak noise, condensation in mask/hose, nasal congestion, dry mouth, nose, throat, epistaxis, other Observed to snore while using device: No Current pressure setting perceived as: too low (I think; okay since she has been out of hospital) On therapy, patient: reports: sleeping better, awakening more refreshed, being more awake and alert during the day, more rested overall, other (can't sleep without it). denies: drowsiness while driving Initial [place] Sleepiness Scale score: 13 Current [place] Sleepiness Scale score: 6 Allergies and Home Medications Drug allergies reviewed: Yes (penicillin, sulfa, clindamycin) Home medication list reviewed: Yes (Keppra for seizures) Review of Systems Review of systems same as previous: No (Jun 2019 in hospital for seizures) Physical Exam Heart Rate: 67 O2 Saturation: 98 Height: 5 ft 1 in Weight: 229 lb Body Mass Index: 43.2 BMI Classification: Morbidly Obese Impression and Plan 1. Obstructive Sleep Apnea-Hypopnea Syndrome, severe, with good treatment compliance and good apnea control. On CPAP therapy, the patient has better sleep quality and is more rested overall. Patient concerned because her 180 day compliance report shows gaps in CPAP use. She states she cannot sleep without it and wears it every night. She only lost one day in June when she was in hospital for seizures. She asks if her machine can be serviced to see why it is not recording all of her uses. She otherwise shows significant improvement of her apneas and an [place] of 6/24 today, initial was 13/24. She may follow up in 1 year. She voiced understanding and agreement with plan of care. Patient's apnea severity and rationale for treatment to reduce apnea, improve sleep quality and reduce cardiovascular and cerebrovascular events was reviewed. I also reviewed the benefit of consistent device use of CPAP for hypertension and diabetes. * Continue autoCPAP pressure at 10-15 cmH2O * Service machine due to not recording times she has used her CPAP * Notify me if snoring with mask or feeling that the pressure is too much or too little * Attempt to lose weight * Call this office if any problems using CPAP * Return for follow up in 1 year, or sooner if concerns arise Counseling Topics: Spare mask, Weight loss health impact Visit Type: In Office Time Spent with Patient (minutes): 20 Provider Statement: I spent 100% of the Face to Face Visit with the patient with greater than 50% spent counseling the patient and coordination of care.
--- OUTSIDE RECORDS SUMMARY | 2020-08-11 01:47 | EXTERNAL MEDICAL SUMMARY RPT | Continuity of Care Document ---
:1965 Demographics Phone Unavailable Preferred Language Unknown Marital Status Unknown [employer]ar[employer] Affiliation Unknown Race Unknown Ethnic Group Unknown Author Organization [facility] Address [address] [place] [address] Phone Social History date description facility [phone]
== END 2020-08-06 10:32 | disposition home or self-care (01) ==
LOC: SC 10:31
PROVIDERS: ATTEND Nurse Practitioner Family
DX: G47.33 Obstructive sleep apnea (adult) (pediatric) (principal); E66.01 Morbid (severe) obesity due to excess calories; Z68.41 Body mass index [BMI] 40.0-44.9, adult
CPT/HCPCS: 99212; 99213

== ENCOUNTER 2021-06-02 10:33 | Outpatient (CLI) | payer MEDICAID ==
--- NOTE | 2021-06-02 11:14 | SLEEP CARE CONSULTATION ---
Information from patient questionnaire entered by Donnie White MA. I have reviewed and concur with the information entered by Donnie White MA. This document represents the service I personally performed and the decisions made by , Thuy Calvo ARNP. History of Present Illness Service Date and Time: 06/02/2021 1033 Previous diagnosis: Severe, Obstructive Sleep Apnea-Hypopnea Syndrome AHI: 30.5 (in 2016)(2000) Reason for follow up: other (9 MONTH F/U, RX NEW MACHINE) Equipment type: CPAP Equipment obtained from: [employer] (getting supplies as needed) Mask style: Nasal (over the nose) Backup mask available: Yes (old mask) Last cushion change: 1 month Prior sleep studies: Yes Year and Where: 2016 - [facility]; 2000 - [place], [place] Type of Sleep Study: Polysomnography HPI additional information: GUILLERMO EDOUARD was diagnosed to have severe, AHI 30.5, obstructive sleep apnea- hypopnea syndrome and returned today for CPAP therapy 9 month follow-up. Sleep Study - Results Type of Sleep Study: Polysomnography Prior sleep studies: Yes Year and Where: 2016 - [facility]; 2000 - [place], [place] CPAP Compliance Data - Data Reviewed with Patient Average duration of nightly device use: 10 hours 52 mins Compliance rate %: 100 Current pressure setting (cmH2O): 10-15 Humidity setting: OFF Heated hose setting: OFF Average residual AHI: 0.5 Average large leak: 6 minutes 28 seconds Subjective Patient concerns: denies: aerophagia, mask discomfort, air blowing in eyes, mask leak noise, condensation in mask/hose, nasal congestion, dry mouth, nose, throat, epistaxis, other Observed to snore while using device: No Current pressure setting perceived as: comfortable On therapy, patient: reports: sleeping better, awakening more refreshed, being more awake and alert during the day, more rested overall. denies: drowsiness while driving Initial [place] Sleepiness Scale score: 13 Current [place] Sleepiness Scale score: 8 (2021) Allergies and Home Medications Known drug allergies: Yes (PNC, CLINDAMYCIN, SULFA) Drug allergies reviewed: Yes Home medication list reviewed: Yes (NEW ONSET OF SEIZURES (GENERAL) TAKING VIMPAT) Allergy and home medication list: Patient ran out her BP meds for 5 days and her blood pressure has been running high. She just restarted on Sunday. Review of Systems Review of systems same as previous: No (general seizures) Physical Exam Vital signs obtained and entered by: CASSANDRA DEMPSEY Blood Pressure: 176/100 (RIGHT, 71 PULSE) Heart Rate: 76 O2 Saturation: 98 (N95 MASK) Height: 5 ft 1 in Weight: 239 lb (WITH CLOTHES) Weight change since last visit: 10 lb gain Body Mass Index: 45.1 BMI Classification: Morbidly Obese Impression and Plan 1. Obstructive Sleep Apnea-Hypopnea Syndrome, severe, with fair treatment compliance and excellent apnea control. On CPAP therapy, the patient has better sleep quality and is more rested overall. Patient has already registered their device for the recall. Patient denies any black particles seen in machine or hoses, any unusual odors coming from device. Patient has not experienced any physical symptoms such as upper airway irritation, headache, skin or eye irritation, asthma, nausea/vomiting, difficulty breathing or chest pain. If patient is not able to sleep due to waking up choking, gasping for air or other respiratory distress that they may decide to continue using it until it is either replaced or repaired. Patient is due for a new machine this year. She last updated her machine in September 2016. She cannot go without her CPAP. I will write to update her device and we will see if they will let it go through right now. Compliance guidelines for new device and follow up discussed. Patient vo iced understanding and agreement with plan. Patient's apnea severity and rationale for treatment to reduce apnea, improve sleep quality and reduce cardiovascular and cerebrovascular events was reviewed. I also reviewed the benefit of consistent device use of CPAP for hypertension and diabetes. Patient has gained weight. Currently patients BMI is 45.1. Obesity increases the risk of apnea, CPAP pressure requirements and overall health risks especially cardiovascular and diabetes. Thus patient is advised to lose weight. Patient was encouraged to lose weight for their overall health and to reduce apneas. * Continue auto CPAP pressure at 10-15 cmH2O * Replacement CPAP machine * Notify me if snoring with mask or feeling that the pressure is too much or too little * Attempt to lose weight * Call this office if any problems using CPAP * Return for follow up one month after obtaining new device or next year, or sooner if concerns arise Counseling Topics: Spare mask, Weight loss health impact Visit Type: In Office Time Spent with Patient (minutes): 22 Provider Statement: I spent 100% of the Face to Face Visit with the patient with greater than 50% spent counseling the patient and coordination of care.
[2021-06-02 11:15] VITALS: BP 176/100
== END 2021-06-02 10:34 | disposition home or self-care (01) ==
LOC: SC 10:33
PROVIDERS: ATTEND Nurse Practitioner Family
DX: G47.33 Obstructive sleep apnea (adult) (pediatric) (principal); E66.01 Morbid (severe) obesity due to excess calories; Z68.42 Body mass index [BMI] 45.0-49.9, adult
CPT/HCPCS: 99212; 99213

== ENCOUNTER 2022-02-01 15:34 | Outpatient (CLI) | payer MEDICAID ==
--- NOTE | 2022-02-01 11:06 | SLEEP CARE CONSULTATION ---
Information from patient questionnaire entered by Dustin Fisher. I have reviewed and concur with the information entered by Dustin Fisher. This document represents the service I personally performed and the decisions made by me, Thuy Cavlo ARNP. History of Present Illness Service Date and Time: 02/01/2022 1040 Previous diagnosis: Severe, Obstructive Sleep Apnea-Hypopnea Syndrome AHI: 30.5 (in 2016)(2000) Reason for follow up: first compliance (SET UP 11/10, ISSUE WHEN LAYING DOWN ), first compliance after device update Equipment type: CPAP (RESMED) Equipment obtained from: [employer] (getting supplies as needed) Mask style: Nasal (over the nose) Mask brand: Resmed (Airfit N20, medium) Backup mask available: Yes (old mask) Prior sleep studies: Yes Year and Where: 2016 - [facility]; 2000 - [place], [place] Type of Sleep Study: Polysomnography HPI additional information: GUILLERMO EDOUARD was diagnosed to have severe, AHI 30.5, obstructive sleep apnea- hypopnea syndrome and returns via video telehealth visit today for CPAP therapy first compliance after updating device follow-up. Sleep Study - Results Type of Sleep Study: Polysomnography Prior sleep studies: Yes Year and Where: 2016 - [facility]; 2000 - [place], [place] CPAP Compliance Data - Data Reviewed with Patient Average duration of nightly device use: 10 hours, 33 minutes Compliance rate %: 100 (12/17/21 to 01/30/22; 45/45 days used) Current pressure setting (cmH2O): 10-15 Average residual AHI: 0.8 Subjective Patient concerns: reports: dry mouth, nose, throat (occasional). denies: aerophagia, mask discomfort, air blowing in eyes, mask leak noise, condensation in mask/hose, nasal congestion, epistaxis Observed to snore while using device: No Current pressure setting perceived as: too low (at night onset) On therapy, patient: reports: sleeping better, awakening more refreshed, being more awake and alert during the day, more rested overall. denies: drowsiness while driving Initial [place] Sleepiness Scale score: 13 Current [place] Sleepiness Scale score: 8 (9-28-22) Allergies and Home Medications Drug allergies reviewed: Yes (as in chart) Home medication list reviewed: Yes (no changes) Allergy and home medication list: Allergies clindamycin Allergy (Verified 06/21/20 16:45) Respiratory Penicillins Allergy (Verified 06/21/20 16:45) Unknown Sulfa (Sulfonamide Antibiotics) Allergy (Verified 06/21/20 16:45) Unknown Review of Systems Review of systems same as previous: Yes (no changes) Physical Exam Vital signs obtained and entered by: VIA PHONE Height: 5 ft 1 in Weight: 235 lb (pt reported) Body Mass Index: 44.4 BMI Classification: Morbidly Obese Impression and Plan 1. Obstructive Sleep Apnea-Hypopnea Syndrome, severe, with excellent treatment compliance and excellent apnea control. On CPAP therapy, the patient has better sleep quality and is more rested overall. Patient feels like her pressure is too low at the onset when putting on her mask. She would like it increased. After some discussion I will adjust her pressure to autoCPAP 13-15 cmH20 for patient comfort. Patient advised to contact me if pressure change is uncomfortable so that it can be adjusted. Goals for apnea control discussed. Patient's apnea severity and rationale for treatment to reduce apnea, improve sleep quality and reduce cardiovascular and cerebrovascular events was reviewed. I also reviewed the benefit of consistent device use of CPAP for hypertension and diabetes. 2. Obesity, unspecified. Currently patients BMI is 44.4. Obesity increases the risk of apnea, CPAP pressure requirements and overall health risks especially cardiovascular and diabetes. Thus patient is advised to lose weight. * Change auto CPAP pressure to 13-15 cmH2O * Notify me if snoring with mask or feeling that the pressure is too much or too little * Attempt to lose weight * Call this office if any problems using CPAP * Return for follow up in 1 year, or sooner if concerns arise Counseling Topics: Spare mask, Weight loss health impact Visit Type: Telehealth Video ([phone]) Video Type: Doximity Patient Location: Home Location of Provider: Office Patient agrees and consents to this telehealth visit type: Yes Patient agrees to have their insurance billed: Yes Time Spent with Patient (minutes): 14 Provider Statement: I spent 100% of the Telehealth Video Call with the patient with greater than 50% spent counseling the patient and coordination of care.
== END 2022-02-01 15:35 | disposition home or self-care (01) ==
LOC: SC 15:34
PROVIDERS: ATTEND Nurse Practitioner Family
DX: G47.33 Obstructive sleep apnea (adult) (pediatric) (principal); E66.01 Morbid (severe) obesity due to excess calories; Z68.41 Body mass index [BMI] 40.0-44.9, adult

== ENCOUNTER 2023-05-28 14:19 | Outpatient (CLI) | payer MEDICAID ==
--- NOTE | 2023-05-29 11:07 | Mammography Report ---
BILATERAL DIGITAL SCREENING MAMMOGRAM 3D/2D: 05/28/2023 CLINICAL: Routine screening. Comparison is made to exam dated: 12/28/2016 mammogram - [facility]. There are scattered areas of fibroglandular density in both breasts (category b / 25%-50% glandular t issue). No significant masses, calcifications, or other findings are seen in either breast. There has been no significant interval change. IMPRESSION: NEGATIVE There is no mammographic evidence of malignancy. A 1 year screening mammogram is recommended. Based on the Tyrer Cuzick model (a risk assessment model) the patient's lifetime risk is 8.0% and her 10 year risk is 3.1%. According to the ACR, ACS, and NCCN guidelines, an annual breast MRI exam arabella g with mammogram is recommended if the patients lifetime risk is 20% or greater. This exam was interpreted at Station ID: [id number]. NOTE: For mammograms, a report in lay terms will be sent to the patient. Approximately 15% of breast malignancies will not be visualized mammographically. In the management of a palpable breast mass, a negative mammogram must not discourage biopsy of a clinically suspicious lesion. Electronically Signed By: Osito Tapia M.D. aty/penrad:05/28/2023 17:34:57 ACR BI-RADS Category 1: Negative 3341F PARENCHYMAL PATTERN: (A) - The breast(s) demonstrate(s) scattered fibroglandular densities. BI-RADS CATEGORY: (1) - 1 Mammogram [id number] 1 year screening LATERALITY: (B)
== END 2023-05-28 14:20 | disposition home or self-care (01) ==
LOC: DI 14:19
DX: Z12.31 Encounter for screening mammogram for malignant neoplasm of breast (principal); R92.323 Mammographic fibroglandular density, bilateral breasts

== ENCOUNTER 2023-07-06 12:11 | Outpatient (CLI) | payer MEDICAID ==
--- NOTE | 2023-07-06 12:49 | XRAY Report ---
PROCEDURE: Shoulder 2+V RT INDICATIONS: RIGHT SHOULDER PAIN TECHNIQUE: 3 views of the shoulder were acquired. COMPARISON: None. FINDINGS: Bones: No acute fractures or dislocations. No suspicious bony lesions. Visualized ribs appear inta ct. Moderate acromioclavicular joint osteoarthrosis. Soft tissues: Calcifications is seen adjacent to the humeral head that is suspicious for calcific te ndinopathy. The visualized lungs are within normal limits. IMPRESSION: 1.No acute osseous abnormality. If there is clinical concern or persistent symptoms, additional imagi ng such as repeat radiographs or advanced imaging (e.g. CT, MRI) may be helpful for further evaluatio n. 2.Rotator cuff calcific tendinopathy or calcific bursitis. 3.Moderate acromioclavicular joint osteoarthrosis. Reviewed by: Carl Almanza MD on 07/06/2023 12:47 PM PST Approved by: Carl Almanza MD on 07/06/2023 12:47 PM PST Station ID: [id number]
== END 2023-07-06 12:12 | disposition home or self-care (01) ==
LOC: DI 12:11
PROVIDERS: ATTEND Registered Nurse
DX: M19.011 Primary osteoarthritis, right shoulder (principal)